=== PATIENT | male | born 1960 | race Caucasian/White ===

== ENCOUNTER 2022-05-08 17:56 | Inpatient (IN) | payer OTHER, SELFPAY ==
[2022-05-08 18:35] VITALS: BP 132/80; PULSE 85; RESP 20; TEMP 36.1; O2SAT 95; BMI 47.0
--- NOTE | 2022-05-08 19:05 | ED.ABDPAIN ---
HPI - Abdominal Pain General Chief Complaint: Abdominal Pain Stated Complaint: PAINFUL ABDOMINAL HERNIA Time Seen by Provider: 05/08/22 18:30 History of Present Illness HPI narrative: This 61-year-old male comes in with abdominal pain due to a umbilical hernia that he cannot reduce. He has had this hernia previously but has been able to reduce the herniation when needed. He has a history of an inguinal hernia that was repaired. This 1 is umbilical. Related Data Home Medications Medication Instructions Recorded Confirmed amlodipine 10 mg tablet mg 05/08/22 bupropion HCl 300 mg 24 hr tablet, mg PO 05/08/22 extended release chlorthalidone 25 mg tablet mg 05/08/22 lisinopril 40 mg tablet mg 05/08/22 rosuvastatin 10 mg tablet mg 05/08/22 spironolactone 25 mg tablet mg 05/08/22 Allergies Allergy/AdvReac Type Severity Reaction Status Date / Time No Known Drug Allergies Allergy Verified 05/08/22 18:34 Review of Systems Status of ROS Reports: 10 or more systems reviewed and unremarkable except as noted in History and below Narrative Constitutional: No fevers, no weight gain or loss. Eyes: No discharge. No vision changes. HENT: No congestion, no sore throat, no ear pain. Cardiovascular: No chest pain, no palpitations. Respiratory: No shortness of breath, no wheezes, no cough. Gastrointestinal: No vomiting, no diarrhea. Abdominal pain at the umbilicus due to herniation. Genitourinary: No dysuria, no hematuria. Musculoskeletal: Normal range of motion. Skin: No rashes, no pruritis. Neurological: No dizziness, weakness, sensory change, speech change. Endo/Heme/Allergies: No bruising or bleeding. No polydipsia. Pysch: no suicidality, no anxiety, no insomnia. All other systems reviewed and are negative. PFSH PFSH Social History Smoking Status: Never smoker How often do you have a drink containing alcohol: never AUDIT-C Alcohol total score: 0 Non-prescribed substance use: denies use service: No Exam Narrative: Exam Narrative: Constitutional: Well-developed, well-nourished, no acute distress. HEENT: Normocephalic, atraumatic. Neck: Normal range of motion. Nontender. Supple. Heart: Intact distal pulses. Lungs: No chest discomfort. No wheezes, rhonchi, or rales. Abdomen: Herniation at the superior portion of the umbilicus that is palpable to about 8 cm in diameter. Back: Normal range of motion. Extremities: Normal range of motion. No injury. Skin: Intact. No rash. Warm. No erythema or pallor. Neurologic: No altered sensation. No weakness. Alert and oriented. Psychiatric: No suicidality. No anxiety or depression. No insomnia. Nursing notes and vitals signs are reviewed. Const: Vital Signs, click to edit/add: Vital Signs - 24 hr 05/08/22 18:35 05/08/22 19:43 Temperature 97.0 F L Pulse Rate [Right Pulse Oximeter] 85 86 Respiratory Rate 20 Blood Pressure [Ri ght Upper Arm] 132/80 138/82 Pulse Oximetry 95 91 Oxygen Delivery Me thod Room Air Room Air Course Vital Signs Vital signs: Initial Vital Signs Temperature 97.0 F L 05/08/22 18:35 Temperature Source Temporal Artery Scan 05/08/22 18:35 Pulse Rate 85 05/08/22 18:35 Respiratory Rate 20 05/08/22 18:35 Blood Pressure 132/80 05/08/22 18:35 Blood Pressure Mean 97 05/08/22 18:35 Blood Pressure Position Sitting 05/08/22 18:35 Pulse Oximetry 95 05/08/22 18:35 Oxygen Delivery Method 05/08/22 18:35 Vital Signs Temperature 97.0 F L 05/08/22 18:35 Pulse Rate 85 05/08/22 18:35 Respiratory Rate 20 05/08/22 18:35 Blood Pressure 132/80 05/08/22 18:35 Pulse Oximetry 95 05/08/22 18:35 Oxygen Delivery Method 05/08/22 18:35 Temperature 97.0 F L 05/08/22 18:35 Pulse Rate 86 05/08/22 19:43 Respiratory Rate 20 05/08/22 18:35 Blood Pressure 138/82 05/08/22 19:43 Pulse Oximetry 91 05/08/22 19:43 Oxygen Delivery Method 05/08/22 19:43 MDM - Abdominal Pain MDM Narrative Medical decision making narrative: This patient comes in with an umbilical hernia that is incarcerated. He does not have any vomiting and does not appear that he has an obstruction of his bowel. I did establish an IV and he received Dilaudid 0.5 mg and Ativan 0.5 mg. I did attempt to reduce the hernia but he became too uncomfortable when becoming more aggressive in trying to push it back into his abdomen. I did contact the surgeon on-call, Dr. Walsh, who requested labs and CT imaging. These results are pending at the end of my shift and care for this patient will be followed through with a contact to Dr. Walsh with results. She will make plans from there in regard to this incarcerated hernia. Lab Data Labs: Lab Results 05/08/22 Range/Units 20:27 WBC 13.10 H (4.50-11.00) K/uL RBC 5.21 (4.30-5.90) m/uL Hgb 15.8 (13.5-17.5) gm/dL Hct 46.3 (37.0-53.0) % MCV 89 (80-100) fL MCH 30 (26-34) pg MCHC 34 (32-36) gm/dL RDW Coeff of Greg 12.7 (11.5-15.5) % Plt Count 269 (140-440) K/uL Neut % (Auto) 82.6 H (42.0-72.0) % Lymph % (Auto) 10.9 L (20-44) % [place] % (Auto) 5.0 (0.0-11.0) % Eos % (Auto) 1.1 (0.0-7.0) % Baso % (Auto) 0.3 (0.0-3.0) % Neut # (Auto) 10.80 H (1.7-7.0) K/uL Lymph # (Auto) 1.40 (0.90-2.90) K/uL [place] # (Auto) 0.70 (0.00-0.90) K/UL Eos # (Auto) 0.10 (0.00-0.50) K/uL Baso # (Auto) 0.00 (0.00-0.30) K/uL Abs Immat Gran (auto) 0.01 (0.00-0.30) K/uL Discharge Plan Discharge Clinical Impression: Incarcerated hernia Prescriptions: No Action chlorthalidone 25 mg tablet spironolactone 25 mg tablet amlodipine 10 mg tablet lisinopril 40 mg tablet rosuvastatin 10 mg tablet bupropion HCl 300 mg tablet extended release 24 hr PO Follow Up/Referrals: Luz Jimenez DO [Primary Care Provider] -
[2022-05-08] MEDS: LORazepam 2 MG/ML inj 0.5 MG IV (19:23)
[2022-05-08] MEDS: HYDROmorphone 0.5 mg/0.5 ml inj IVP (19:24)
[2022-05-08 19:43] VITALS: BP 138/82; PULSE 86; O2SAT 91
--- NOTE | 2022-05-08 20:08 | CRLHL7_ITS ---
For Patients: As a result of the Century Cures Act, medical imaging exams and procedure reports are released immediately into your electronic medical record. You may view this report before your referring provider. If you have questions, please contact your health care provider. INDICATION: . TECHNIQUE: CT abdomen and pelvis acquired with 150 cc Isovue 370 IV contrast. COMPARISON: 12/11/2021. FINDINGS: Lower chest: Unremarkable. Liver: Unremarkable. Normal in size and attenuation. No suspicious masses. Gallbladder and bile ducts: Mildly prominent bile ducts, likely secondary to post cholecystectomy state. Spleen: Unremarkable. Normal in size. No masses. Adrenal glands: Unremarkable. No nodules. Pancreas: Unremarkable. No mass or inflammation. Kidneys: Left renal cyst, unchanged. No stones. No hydronephrosis. GI tract: Multiple fluid-filled dilated loops of small bowel with transition point at the supraumbilical hernia. Status post appendectomy. Lymph nodes: No lymphadenopathy. Vasculature: Unremarkable. Omentum/Peritoneum/Abdominal Wall: Increased size of supraumbilical hernia, now containing small bowel loops. Small amount of free fluid within the supraumbilical hernia. Interval repair of the left ventral wall hernia. Fat containing left inguinal hernia. Pelvis: Mild prostatomegaly. Bones: Unremarkable for age. IMPRESSION: 1. Small bowel obstruction with transition point at the supraumbilical hernia. 2. Increased size of supraumbilical hernia, which now contains small bowel loops and a small amount of free fluid. Please note that all CT scans at this facility use dose modulation, iterative reconstruction, and/or weight-based dosing when appropriate to reduce radiation dose to as low as reasonably achievable. Dictated by Sven Burrows MD @ 05/08/2022 10:29:29 PM (Electronically Signed)
[2022-05-08 20:33] LABS: Basophils Percent Auto 0.3 % (0.0-3.0); Eosinophils Percent Auto 1.1 % (0.0-7.0); Hematocrit 46.3 % (37.0-53.0); Hemoglobin* 15.8 gm/dL (13.5-17.5); Immature Granulocytes Abs Auto 0.01 K/uL (0.00-0.30); Lymphocytes Percent Auto 10.9 % (20-44); Mean Corpuscular HGB Conc 34 gm/dL (32-36); Mean Corpuscular Hemoglobin 30 pg (26-34); Mean Corpuscular Volume 89 fL (80-100); Neutrophils Percent Auto 82.6 % (42.0-72.0); Platelet Count* 269 K/uL (140-440); RDW Coefficient of Variation % 12.7 % (11.5-15.5); Red Blood Count 5.21 m/uL (4.30-5.90)
[2022-05-08 20:34] LABS: Slide Review Reflex No
[2022-05-08 21:29] LABS: Chloride* 98 mmol/L (96-114)
[2022-05-08 21:30] LABS: Sodium* 135 mmol/L (135-149)
[2022-05-08 21:32] LABS: Creatinine* 0.9 mg/dL (0.5-1.5); Est. Creatinine Clearance* 92.96; Estimated Glomerular Filt Rate 98 ml/min
[2022-05-08 21:33] LABS: Blood Urea Nitrogen* 19 mg/dL (7-30); Calcium* 9.8 mg/dL (8.4-10.6); Carbon Dioxide* 26 mmol/L (20-32); Glucose* 162 mg/dL (60-115)
[2022-05-08 22:45] VITALS: BP 101/66; PULSE 85; O2SAT 95
[2022-05-08] MEDS: ONDANSETRON 2 MG/ML inj 4 MG IVP (23:08)
[2022-05-08 23:32] VITALS: BP 145/70; PULSE 104; O2SAT 93
--- NOTE | 2022-05-08 23:42 | PM.GSCN ---
History of Present Illness Consult details Date Seen: 05/08/22 Consult date: 05/08/22 Narrative: Patient is a 61-year-old male, who presented to the emergency department with worsening abdominal pain. He states that around 2:00 this afternoon the hernia around his belly button became more tender. He also reports some swelling around that time. He does usually have a bulge that is able to easily reduce, however this afternoon he was unable to push away the bulge and the pain increased in intensity. His last bowel movement was earlier this morning. Since being in the emergency department his pain has worsened and he is now reporting nausea with emesis. He does have history of a recent incarcerated ventral hernia of the left lower quadrant (December 2021). At that time the hernia was able to be reduced in the emergency department and patient underwent urgent repair as an outpatient with placement of mesh. His umbilical hernia was asymptomatic at that time. His abdominal surgical history is also positive for an exploratory laparotomy with stoma creation and stoma takedown secondary to diverticulitis. He has also had an appendectomy and a cholecystectomy. He is a nonsmoker, no history of diabetes. He does have morbid obesity with a BMI of 47. Review of Systems Status of ROS: Reports: 10 or more systems reviewed and unremarkable except as noted in History and below [facility] Social History Smoking Status: Never smoker How often do you have a drink containing alcohol: never AUDIT-C Alcohol total score: 0 Non-prescribed substance use: denies use service: No Meds Home Medications and Allergies Home Medications Medication Instructions Recorded Confirmed Type amlodipine 10 mg tablet mg 05/08/22 History bupropion HCl 300 mg 24 hr tablet, mg PO 05/08/22 History extended release chlorthalidone 25 mg tablet mg 05/08/22 History lisinopril 40 mg tablet mg 05/08/22 History rosuvastatin 10 mg tablet mg 05/08/22 History spironolactone 25 mg tablet mg 05/08/22 History Allergies Allergy/AdvReac Type Severity Reaction Status Date / Time No Known Drug Allergies Allergy Verified 05/08/22 18:34 Exam Narrative: Exam Narrative: General: Patient is lying on his side in moderate amount of discomfort, nontoxic in appearance. Respiratory: Equal breath rise bilaterally, maintained on room air CV: Tachycardia, regular rhythm and well perfused Abdomen: Obese abdomen, previously well-healed surgical incisions. Supraumbilical bulge that is tender to palpation, no overlying skin changes. Const: Vital Signs, click to edit/add: Vital Signs - 24 hr 05/08/22 18:35 05/08/22 19:43 05/08/22 22:45 Temperature 97.0 F L Pulse Rate [Right Pulse Oximeter] 85 86 85 Respiratory Rate 20 Blood Pressure [Ri ght Upper Arm] 132/80 138/82 101/66 Pulse Oximetry 95 91 95 Oxygen Delivery Me thod Room Air Room Air Room Air 05/08/22 23:32 Temperature Pulse Rate [Right Pulse Oximeter] 104 H Respiratory Rate Blood Pressure [Ri ght Upper Arm] 145/70 H Pulse Oximetry 93 Oxygen Delivery Me thod Room Air Results Labs Labs: Abnormal lab results 05/08/22 05/08/22 Range/Units 20:27 20:27 WBC 13.10 H (4.50-11.00) K/uL Neut % (Auto) 82.6 H (42.0-72.0) % Lymph % (Auto) 10.9 L (20-44) % Neut # (Auto) 10.80 H (1.7-7.0) K/uL Glucose 162 H (60-115) mg/dL Diabetes panel 05/08/22 Range/Units 20:27 Sodium 135 (135-149) mmol/L Potassium 4.0 (3.6-5.1) mmol/L Chloride 98 (96-114) mmol/L Carbon Dioxide 26 (20-32) mmol/L BUN 19 (7-30) mg/dL Creatinine 0.9 (0.5-1.5) mg/dL Glucose 162 H (60-115) mg/dL Calcium 9.8 (8.4-10.6) mg/dL Calcium panel 05/08/22 Range/Units 20:27 Calcium 9.8 (8.4-10.6) mg/dL Pituitary panel 05/08/22 Range/Units 20:27 Sodium 135 (135-149) mmol/L Potassium 4.0 (3.6-5.1) mmol/L Chloride 98 (96-114) mmol/L Carbon Dioxide 26 (20-32) mmol/L BUN 19 (7-30) mg/dL Creatinine 0.9 (0.5-1.5) mg/dL Glucose 162 H (60-115) mg/dL Calcium 9.8 (8.4-10.6) mg/dL Adrenal panel 05/08/22 Range/Units 20:27 Sodium 135 (135-149) mmol/L Potassium 4.0 (3.6-5.1) mmol/L Chloride 98 (96-114) mmol/L Carbon Dioxide 26 (20-32) mmol/L BUN 19 (7-30) mg/dL Creatinine 0.9 (0.5-1.5) mg/dL Glucose 162 H (60-115) mg/dL Calcium 9.8 (8.4-10.6) mg/dL All other labs normal. Imaging Abdomen CT scan report/results: report reviewed and image reviewed Assessment and Plan Assessment and plan (1) Incarcerated hernia: Status: Acute Plan Patient is a 61-year-old male with evidence of a supraumbilical hernia, with incarcerated small bowel. On exam he is in a moderate amount of distress and tachycardic. Tender supraumbilical with some guarding. Labs are significant for leukocytosis of 13,000. CT scan demonstrates an increase in size of his supraumbilical hernia, when compared to previous imaging, with small-bowel obstruction and transition point within the supraumbilical hernia itself. There is also a small amount of free fluid within the hernia sac. An attempt was made by emergency room physician kimberly, prior to my evaluation and unsuccessful. Given the above findings on workup, as well as my clinical exam, I am concerned about small bowel incarceration and possible strangulation. Recommend patient undergo an emergent exploratory laparotomy, with possible small-bowel resection and ventral hernia repair. I would not plan to place mesh in this setting, given the increased risk of infection. Risks and benefits of the procedure were discussed at length with the patient and his . Risks included, but were not limited to: Bleeding, infection, risk of anastomotic leak, risk of damage to surrounding structures and the possible need for additional procedures. I also reviewed with the patient the risk of hernia recurrence, which is higher given his body habitus and the need for a primary repair. All questions and concerns were addressed with patient agreeing to proceed.
[2022-05-08 23:57] LABS: PCR FLU A Negative PCR FLU A (Negative); PCR FLU B Negative PCR FLU B (Negative)
[2022-05-08 23:59] LABS: SARS PCR* Negative SARS-CoV-2 (Negative)
[2022-05-09] VITALS (22 sets, daily range): BP systolic 115–173; BP diastolic 69–106; PULSE 90–115; RESP 16–20; TEMP 36.6–37.3; O2SAT 92–98; BMI 47.0
[2022-05-09] MEDS: PIPERACILLIN/TAZOBACTAM 3.375 GM in 0.9 % SODIUM CHLORIDE Mini-bag 100 ML IVPB (00:14)
--- NOTE | 2022-05-09 00:41 | SUR.OPER ---
Patient was transferred from ER to OR4 by bed. Patient was assisted to the OR table and covered with warm blankets x2.
--- NOTE | 2022-05-09 02:34 | PM.GSPRC ---
Operative Note Date of procedure: 05/09/22 Type of Procedure: 1. Exploratory laparotomy 2. Small bowel resection with anastomosis Procedure Description: After discussing the risks and benefits of the procedure, the patient signed informed consent.? The operative site was marked and the patient was brought to the operating room and placed on the operating table in supine position.? Care was taken to pad the patient's pressure points.?? The patient was then intubated by anesthesia.?? A tap block was performed by Anesthesia. A Akbar catheter was placed sterilely. The operative site was then prepped and draped in the usual sterile fashion.? A time-out was then performed. A supraumbilical midline incision was made with a 10 scalpel. Dissection was carried down carefully through subcutaneous tissue with cautery. A hernia sac was encountered within the subcutaneous tissue. This was very taut and large, with obvious fluid within the hernia sac itself. The incision was carried down inferior to just below the umbilicus. The hernia sac was circumferentially dissected down to fascia. The hernia sac was then sharply entered with the Metzenbaum scissors with a moderate amount of murky serous fluid within the abdomen. The incarcerated bowel had a concerning area of necrosis. There also multiple inter bowel and mesenteric adhesions. The fascial defect was extended superior and inferiorly to allow for inspection of the small bowel and small bowel anastomosis. The small bowel was run from the ligament of Treitz to the ileocecal valve, there were multiple thick adhesions that were apparent. A transition point was identified near the area of necrotic bowel. I performed a lysis of adhesions to the segment of small bowel that was involved with the hernia and required resection. This was performed bluntly with finger fracturing and sharply with Metzenbaum scissors. Care was taken not to injure any of the underlying bowel. There was no evidence of any incidental serosal adhesions. A point proximal and distal to the necrotic segment of bowel was chosen for resection. A small incision was made in the mesentery and each and cut with 100 mm blue MAITE staple load. The mesentery was scored with cautery. The mesentery was then serially divided and ligated with 2 0 Vicryl ties. The specimen was then passed off to the back table. An enterotomy was created on each segment of bowel along the anti mesenteric border, approximately 1 cm away from the staple line. A [id number] functional end-to-end anastomosis was created with 100 mm blue MAITE staple load. As the stapler was removed the anastomosis was inspected, with no evidence of bleeding. The common enterotomy was then closed with 3-0 silk Lembert stitches. A 3-0 silk crotch stitch was applied at the base of the anastomosis. The mesenteric defect was closed with running 3-0 Vicryl suture. The bowel was then placed back into the abdomen. An NG tube was placed by Anesthesia and placement confirmed intraoperatively in the stomach. The hernia sac was excised with cautery off of the fascial edges. This was passed off to the back table for disposal. The midline fascial incision was then closed with two running looped 0 Maxon sutures. The incision was irrigated with warm saline and closed with a skin stapler. ? Sterile dressings were then applied. ? The patient was then woken and transported to the recovery area in stable condition. ? The patient tolerated the procedure well. Findings: Incarcerated small bowel within a large supraumbilical hernia. Area of strangulation, requiring small-bowel resection. Anesthesia: GETA Surgeon: Arlene Walsh MD Estimated blood loss (mL): 20 Condition: stable Disposition: PACU
--- NOTE | 2022-05-09 03:06 | W.PM.NB ---
Nerve Block Nerve Block Time Seen by Provider: 23:55 Date Seen: 05/08/22 Type of block requested by surgeon for post-operative analgesia: TAP Side: bilateral Time out performed: Yes Verification of patient name: Yes Verification of date of : Yes Site marking: site marked Name of person performing procedure: KI Reynoso Continuous monitoring Was continuous monitoring of O2 sat, B/P, telemetry monitor, recorded every 15 minutes?: Yes Procedure Checklist: sterile prep, needles and gloves Ultrasound guided. Images saved: Yes Medications given in 5ml increments after negative aspiration: Marcaine (20 ml/side) %: 0.25 mL: 40 Needle gauge: 20 and Exparel (5 ml/side) mL: 10 Needle gauge: 20 Patient tolerated procedure well: Yes Block Charges Block Charge (with Pro Fee): TAP Bilateral Use of Ultrasound Machine for Block: Yes- US Guidance/pain block
--- NOTE | 2022-05-09 03:08 | W.ANESCHARGE ---
Anesthesia Charges Start Date/Time Anesthesia Start Date: 05/08/22 Anesthesia Start Time: 23:55 Stop Date/Time Anesthesia Stop Date: 05/09/22 Anesthesia Stop Time: 02:51 Summary Emergency: Yes
[2022-05-09] MEDS: LACTATED RINGERS 1000 ML 1,000 ML 125 ML IV ×2 (04:08→08:01)
--- NOTE | 2022-05-09 05:38 | PC.NURSE ---
Pt arrived from PACU approx 0315, awake and orients x3, at bedside. Midline incision with dressing applied, C/D/I and abd binder in place. denies N/V, NG tube in place to LIS. bowel sounds absent
[2022-05-09] MEDS: OXYCODONE 5 MG TABLET PO (07:42)
[2022-05-09] MEDS: ACETAMINOPHEN 325 MG TABLET 650 MG PO (07:42)
[2022-05-09] MEDS: HYDROmorphone 0.5 mg/0.5 ml inj IVP ×2 (08:54→16:44)
--- NOTE | 2022-05-09 09:39 | P.GSPN_ITS ---
Subjective Subjective Date Seen: 05/09/22 Interval history: Patient is doing okay this morning. He has not yet gotten out of bed. He does have incisional pain, but overall abdominal pain is improved compared to yesterday. Not yet passed gas. No concerns. Exam Narrative: Exam Narrative: General: Alert and oriented, no acute distress. Lying comfortably in bed. Respiratory: Nasal cannula in place HEENT: NG tube in place, minimal bile tinged output CV: Mild tachycardia, well perfused Abdomen: Obese abdomen, soft, appropriately tender over incision sites. No gua rding or rebound. Abdominal binder remains in place. Const: Vital Signs, click to edit/add: Vital Signs - 24 hr 05/08/22 18:35 05/08/22 19:43 05/08/22 22:45 Temperature 97.0 F L Pulse Rate Pulse Rate [Pulse Oximeter] Pulse Rate [Right Pulse Oximeter] 85 86 85 Respiratory Rate 20 Blood Pressure Blood Pressure [Ri ght Arm] Blood Pressure [Ri ght Upper Arm] 132/80 138/82 101/66 Pulse Oximetry 95 91 95 Oxygen Delivery Me thod Room Air Room Air Room Air Oxygen Flow Rate 05/08/22 23:32 05/09/22 02:47 05/09/22 02:50 Temperature 98.2 F Pulse Rate 96 99 Pulse Rate [Pulse Oximeter] Pulse Rate [Right Pulse Oximeter] 104 H Respiratory Rate 16 16 Blood Pressure 139/91 H 136/97 H Blood Pressure [Ri ght Arm] Blood Pressure [Ri ght Upper Arm] 145/70 H Pulse Oximetry 93 98 98 Oxygen Delivery Me thod Room Air Nasal Cannula Nasal Cannula Oxygen Flow Rate 6 6 05/09/22 02:55 05/09/22 03:00 05/09/22 03:05 Temperature Pulse Rate 91 90 95 Pulse Rate [Pulse Oximeter] Pulse Rate [Right Pulse Oximeter] Respiratory Rate 16 16 16 Blood Pressure 134/90 H 140/89 H 141/88 H Blood Pressure [Ri ght Arm] Blood Pressure [Ri ght Upper Arm] Pulse Oximetry 95 96 98 Oxygen Delivery Me thod Nasal Cannula Nasal Cannula Nasal Cannula Oxygen Flow Rate 6 6 4 05/09/22 03:10 05/09/22 03:15 05/09/22 03:17 Temperature 98.2 F Pulse Rate 97 90 Pulse Rate [Pulse Oximeter] 94 Pulse Rate [Right Pulse Oximeter] Respiratory Rate 16 16 18 Blood Pressure 128/84 126/83 Blood Pressure [Ri ght Arm] 156/99 H Blood Pressure [Ri ght Upper Arm] Pulse Oximetry 95 97 94 Oxygen Delivery Me thod Nasal Cannula Nasal Cannula Nasal Cannula Oxygen Flow Rate 4 4 4 05/09/22 03:27 05/09/22 03:50 05/09/22 04:06 Temperature 98.4 F 97.9 F Pulse Rate Pulse Rate [Pulse Oximeter] 93 96 Pulse Rate [Right Pulse Oximeter] Respiratory Rate 18 18 20 Blood Pressure Blood Pressure [Ri ght Arm] 163/106 H 173/103 H Blood Pressure [Ri ght Upper Arm] Pulse Oximetry 96 96 96 Oxygen Delivery Me thod Nasal Cannula Nasal Cannula Nasal Cannula Oxygen Flow Rate 4 4 4 05/09/22 04:14 05/09/22 04:20 05/09/22 03:15 Temperature 97.9 F 98.8 F 98.3 F Pulse Rate 94 Pulse Rate [Pulse Oximeter] 102 H 102 H Pulse Rate [Right Pulse Oximeter] Respiratory Rate 18 18 18 Blood Pressure Blood Pressure [Ri ght Arm] 115/86 115/86 156/99 H Blood Pressure [Ri ght Upper Arm] Pulse Oximetry 96 95 Oxygen Delivery Me thod Nasal Cannula Nasal Cannula Nasal Cannula Oxygen Flow Rate 4 4 4 05/09/22 04:30 05/09/22 05:00 05/09/22 06:00 Temperature 98.6 F 98.6 F Pulse Rate Pulse Rate [Pulse Oximeter] 106 H 104 H 111 H Pulse Rate [Right Pulse Oximeter] Respiratory Rate 18 20 20 Blood Pressure Blood Pressure [Ri ght Arm] 120/80 128/88 125/85 Blood Pressure [Ri ght Upper Arm] Pulse Oximetry 95 93 94 Oxygen Delivery Me thod Nasal Cannula Nasal Cannula Nasal Cannula Oxygen Flow Rate 4 4 4 05/09/22 07:00 Temperature 98.6 F Pulse Rate Pulse Rate [Pulse Oximeter] 106 H Pulse Rate [Right Pulse Oximeter] Respiratory Rate 20 Blood Pressure Blood Pressure [Ri ght Arm] 152/97 H Blood Pressure [Ri ght Upper Arm] Pulse Oximetry 92 Oxygen Delivery Me thod Nasal Cannula Oxygen Flow Rate 4 Labs/Imaging Labs Labs: Leukocytosis (13), hyperglycemia (162). Progress Note: A&P Assessment and plan (1) Incarcerated hernia: Status: Acute Assessment and Plan: Patient is postop day 0 exploratory laparotomy and small-bowel resection. Doing well in the immediate postop phase. Has had some mild tachycardia overnight, will continue to trend at this time, suspect could be secondary to pain. Afebrile and abdomen is benign this morning. NG tube remains in place, minimal output since getting on the floor. He continues to have the Akbar catheter in place and has not yet gotten out of the bed. -encourage ambulation -NG tube low intermittent suction -NPO, okay for sips and ice chips -remove Akbar catheter this morning -Dilaudid and oxycodone for pain, will add Toradol -SCDs, holding Lovenox for DVT prophylaxis in the immediate postop phase -will hold [employer] meds for now
[2022-05-09] MEDS: KETOROLAC 15 MG/ML inj IVP ×2 (12:47→19:06)
--- NOTE | 2022-05-09 14:26 | PC.NURSE ---
NG to LIS with 200 cc out. Dressing CDI under abdominal binder. Rounds by Dr. Walsh. Pt's oakley discontinued at 1345 pm, pt walked in hallway once this afternoon with SBA. He has been up to chair during the day. Oxygen tapered to 3L/NC Please see eMar for medications provided on day shift. Pt is deaf in his left ear, cochlear implant, please address pt from the right side.
--- NOTE | 2022-05-09 22:42 | PC.NURSE ---
Shift Summary: Patient is up in the chair this evening. Rating pain at a 6-8/10 in his abdomen. Dressing appears clean, dry and intact. Abdomen is tender with no bowel sounds present. Abdominal binder in place. Patient encouraged to walk in the [place] - went for walk in the [place] x2 this shift. Dilaudid and toradol given PRN for pain management. NG remains to LIS - 150mL out for this shift.
[2022-05-10] VITALS (7 sets, daily range): BP systolic 106–127; BP diastolic 60–94; PULSE 89–102; RESP 20–24; TEMP 36.7–37.2; O2SAT 90–96
[2022-05-10] MEDS: LACTATED RINGERS 1000 ML 1,000 ML 125 ML IV ×4 (00:19→23:48)
[2022-05-10] MEDS: HYDROmorphone 0.5 mg/0.5 ml inj IVP ×2 (01:33→09:13)
--- NOTE | 2022-05-10 06:48 | PC.NURSE ---
END OF SHIFT NOTE: PT CALM AND COOPERATIVE. PT AMBULATES WITH SBA. PT DENIES CP, SOB, N/V. PT RATES ABDOMINAL PAIN 8/10 WITH RELIEF FROM PRN DILAUDID. PT ALSO RATED HEADACHE 5/10 THAT DISSIPATED AFTER SAME DILAUDID ADMINISTRATION. VSS ON 3.5L NC NOC. TACHYCARDIC @102. LR RUNNING @125ML/HR. NG PLACED IN LEFT NARE @65; DRAINING BROWN OUTPUT. UNEVENTFUL NIGHT.
[2022-05-10 06:58] LABS: Basophils Percent Auto 0.2 % (0.0-3.0); Eosinophils Percent Auto 0.5 % (0.0-7.0); Hematocrit 40.5 % (37.0-53.0); Hemoglobin* 13.4 gm/dL (13.5-17.5); Immature Granulocytes Abs Auto 0.03 K/uL (0.00-0.30); Lymphocytes Percent Auto 11.9 % (20-44); Mean Corpuscular HGB Conc 33 gm/dL (32-36); Mean Corpuscular Hemoglobin 31 pg (26-34); Mean Corpuscular Volume 92 fL (80-100); Monocytes Percent Auto 10.3 % (0.0-11.0); Neutrophils Percent Auto 76.9 % (42.0-72.0); Platelet Count* 248 K/uL (140-440); RDW Coefficient of Variation % 13.2 % (11.5-15.5)
[2022-05-10 07:11] LABS: Slide Review Reflex No
[2022-05-10 07:19] LABS: Chloride* 97 mmol/L (96-114); Sodium* 134 mmol/L (135-149)
[2022-05-10 07:22] LABS: Blood Urea Nitrogen* 25 mg/dL (7-30); Calcium* 8.2 mg/dL (8.4-10.6); Carbon Dioxide* 30 mmol/L (20-32); Creatinine* 0.9 mg/dL (0.5-1.5); Est. Creatinine Clearance* 92.96; Estimated Glomerular Filt Rate 98 ml/min; Glucose* 135 mg/dL (60-115)
[2022-05-10] MEDS: KETOROLAC 15 MG/ML inj IVP (07:45)
[2022-05-10] MEDS: ONDANSETRON 2 MG/ML inj IVP (07:45)
[2022-05-10] MEDS: 0.9 % SODIUM CHLORIDE 1000 ml 1,000 ML IV (09:11)
[2022-05-10] MEDS: buPROPion XL 150 MG TABLET 300 MG PO (09:12)
[2022-05-10] MEDS: SPIRONOLACTONE 25 MG TABLET 12.5 MG PO (09:12)
[2022-05-10] MEDS: lisinopriL 20 MG TABLET 40 MG PO (09:13)
[2022-05-10] MEDS: CHLORTHALIDONE 25 MG TABLET PO (09:13)
[2022-05-10] MEDS: AMLODIPINE 10 MG TABLET PO (09:13)
--- NOTE | 2022-05-10 09:48 | P.GSPN_ITS ---
Subjective Subjective Date Seen: 05/10/22 Interval history: Patient is doing well this morning. He was able to walk the halls twice yesterday, his goal is to walk 4 times today. No appetite and not yet passing gas, although he does feel ?things rumbling?. He does admit to some nausea this morning, helped with Zofran. His NG tube continues in place. His abdominal pain is well controlled with IV pain medicine. Exam Narrative: Exam Narrative: General: Alert and oriented, no acute distress. Lying in bed comfortably. Respiratory: Equal breath rise bilaterally, maintained on room air CV: Mild tachycardia, well perfused Abdomen: Obese abdomen, abdominal binder and dressings removed. Midline incision with [place] in place clean/dry/intact with no concern for infection. Abdomen is nondistended and nontender to palpation. Const: Vital Signs, click to edit/add: Vital Signs - 24 hr 05/09/22 13:00 05/09/22 15:00 05/09/22 15:00 Temperature 99.2 F 97.9 F Pulse Rate [Pulse Oximeter] 109 H 97 101 H Respiratory Rate 20 20 20 Blood Pressure [Ri ght Arm] 134/79 137/69 Pulse Oximetry 95 94 Oxygen Delivery Me thod Nasal Cannula Oxygen Flow Rate 3 05/09/22 19:00 05/10/22 01:30 05/10/22 01:30 Temperature 98.9 F 98.4 F Pulse Rate [Pulse Oximeter] 97 102 H 102 H Respiratory Rate 20 20 20 Blood Pressure [Ri ght Arm] 144/81 H 122/94 H Pulse Oximetry 93 90 Oxygen Delivery Me thod Room Air Nasal Cannula Oxygen Flow Rate 2.5 05/10/22 03:50 Temperature 98.1 F Pulse Rate [Pulse Oximeter] 102 H Respiratory Rate 20 Blood Pressure [Ri ght Arm] 127/72 Pulse Oximetry 95 Oxygen Delivery Me thod Nasal Cannula Oxygen Flow Rate 3.5 Labs/Imaging Labs Labs: Persistent leukocytosis 13, hemoglobin has trended down (15.8--13.4) Progress Note: A&P Assessment and plan (1) Incarcerated hernia: Status: Acute Assessment and Plan: Patient is postop day 1 exploratory laparotomy and small-bowel resection. Persistent tachycardia (upper 90/low 100s), could be secondary to patient being fluid down, low concern for infection with patient being afebrile. Leukocytosis is stable but will continue to trend. Will give a bolus of normal saline this morning and evaluate response. Pain does appear well controlled at this time with IV pain medicines. Hemoglobin did trend down (15.8--13.4), could be surgical sales representative of intraoperative blood loss, low concern for ongoing bleeding at this time with patient having a benign abdomen and stable pressures however will continue to hold his subcutaneous DVT prophylaxis until hemoglobin stabilizes. Will continue with NG tube in place to low intermittent suction given patient's intermittent nausea, anticipate removal once patient starts passing gas. -encourage ambulation -NG tube low intermittent suction -NPO, okay for sips and ice chips -Dilaudid and oxycodone for pain, will add Toradol -SCDs, holding Lovenox for DVT prophylaxis until stabilized hemoglobin -bolus of normal saline this morning, close monitoring urinary output -restarted home medications, okay to clamp NG tube p.r.n.
[2022-05-10] MEDS: OXYCODONE 5 MG TABLET PO ×2 (14:56→23:26)
--- NOTE | 2022-05-10 15:38 | PC.NURSE ---
Please see Emar for meds given to control pain and scheduled medications. Pt eval by Dr. Walsh early am, treated pt with 8mg Zofran and 15 mg toradol for c/o nausea and pain 8-9 out of 10. RN flushed NG with 30cc of water and only 30 cc of gastric drainage recovered by early afternoon. Drsg changed per primary RN to vertical stapled incision. Abdominal binder off. Pt has walked 3 times in hallway and passed flatus twice. Dr. Walsh removed NG. Advanced to CL diet. Adequate I & O. No c/o increased nausea reported by pt. Pain managed with oral oxycodone at this time. Report to Carito Sheehan RN.
[2022-05-10] MEDS: ROSUVASTATIN CALCIUM 10 MG TABLET PO (20:05)
--- NOTE | 2022-05-10 21:40 | PC.NURSE ---
Shift Note [id number]: Pt friendly and cooperative. Diligent with ambulation and took long walk throughout unit with his this evening. Pt did complete 4 walks throughout the day. BP's slightly soft, pt asymptomatic with 103 and 113 systolic. HR= 80-90's. Afebrile. LS COA. Rates pain 4/10, did not require any pain medication this shift. Dressings to medial abdomen C,D,&I. 3.5L/O2 via NC at HS to maintain Spo2 90-92%. Pt reports flatus but no BM. Positive bowel tones throughout. No nausea reported.
[2022-05-11 03:50] VITALS: BP 127/65; PULSE 83; RESP 22; TEMP 36.9; O2SAT 95
[2022-05-11] MEDS: ACETAMINOPHEN 325 MG TABLET 650 MG PO ×4 (06:49→23:58)
[2022-05-11 07:00] VITALS: BP 124/60; PULSE 84; RESP 20; TEMP 36.8; O2SAT 94
--- NOTE | 2022-05-11 07:48 | PC.NURSE ---
END OF SHIFT NOTE: PT PLEASANT AND COOPERATIVE WITH CARES. AMBULATES INDEPENDENTLY. PASSING FLATUS; NO BM REPORTED. LEFT HAND IV INFILTRATED, HAND PUFFY; IV DC'D. NEW IV START TO RIGHT HAND. SUPPLEMENTAL O2 USED AT HS TO MAINTAIN SATS >90%. ADEQUATE ORAL INTAKE AND VOIDING APPROPRIATELY.
[2022-05-11] MEDS: AMLODIPINE 10 MG TABLET PO (08:34)
[2022-05-11] MEDS: buPROPion XL 150 MG TABLET 300 MG PO (08:34)
[2022-05-11] MEDS: CHLORTHALIDONE 25 MG TABLET PO (08:34)
[2022-05-11] MEDS: lisinopriL 20 MG TABLET 40 MG PO (08:34)
[2022-05-11] MEDS: SPIRONOLACTONE 25 MG TABLET 12.5 MG PO (08:35)
[2022-05-11] MEDS: LACTATED RINGERS 1000 ML 1,000 ML 125 ML IV (08:36)
--- NOTE | 2022-05-11 09:28 | PM.GSPN ---
Subjective Subjective Date Seen: 05/11/22 Interval history: Patient is doing well this morning. Has been ambulating in his room and in the halls independently. Continues to pass gas, no bowel movement yet. He does report tolerating clear liquids yesterday and is feeling hungry this morning. Denies any nausea. Pain is well controlled without the need for narcotic pain medicine. No concerns. Exam Narrative: Exam Narrative: General: Alert and oriented, no acute distress Abdomen: Midline incision with mariposa in place clean/dry/intact with no concern for infection. Abdomen is soft, nontender and nondistended. Const: Vital Signs, click to edit/add: Vital Signs - 24 hr 05/10/22 11:00 05/10/22 15:00 05/10/22 15:00 Temperature 98.9 F 98.4 F Pulse Rate [Pulse Oximeter] 95 94 90 Respiratory Rate 20 20 20 Blood Pressure [Ri ght Arm] 110/68 106/70 Pulse Oximetry 92 93 Oxygen Delivery Me thod Nasal Cannula Room Air Oxygen Flow Rate 05/10/22 19:00 05/10/22 23:10 05/10/22 23:10 Temperature 98.4 F 98.4 F Pulse Rate [Pulse Oximeter] 89 93 93 Respiratory Rate 20 24 24 Blood Pressure [Ri ght Arm] 113/60 124/64 Pulse Oximetry 92 93 Oxygen Delivery Me thod Nasal Cannula Nasal Cannula Oxygen Flow Rate 3.5 3.5 05/11/22 03:50 05/11/22 07:00 05/11/22 07:00 Temperature 98.4 F 98.2 F Pulse Rate [Pulse Oximeter] 83 84 84 Respiratory Rate 22 20 20 Blood Pressure [Ri ght Arm] 127/65 124/60 Pulse Oximetry 95 94 Oxygen Delivery Me thod Nasal Cannula Room Air Oxygen Flow Rate 3.5 Labs/Imaging Labs Labs: CBC pending this morning Progress Note: A&P Assessment and plan (1) Incarcerated hernia: Status: Acute Assessment and Plan: Patient is postop day 2 exploratory laparotomy and small-bowel resection. Tachycardia improved with fluid bolus yesterday, heart rate remains in the 80s and pressure is adequate. Hemoglobin pending this morning, if stable okay to start Lovenox for DVT prophylaxis. He has started to pass gas, no bowel movement yet. NG tube was removed yesterday. No acute concerns. -clear liquids, will await advancement of diet until patient has a bowel movement -Tylenol, Toradol p.r.n.. Patient trying to avoid narcotic pain medicine -senna stool softeners, Dulcolax suppository p.r.n. -SCDs, holding Lovenox for DVT prophylaxis until stabilized hemoglobin
[2022-05-11 09:37] LABS: Basophils Percent Auto 0.4 % (0.0-3.0); Eosinophils Percent Auto 2.9 % (0.0-7.0); Hematocrit 37.5 % (37.0-53.0); Hemoglobin* 12.5 gm/dL (13.5-17.5); Immature Granulocytes Abs Auto 0.02 K/uL (0.00-0.30); Lymphocytes Percent Auto 16.9 % (20-44); Mean Corpuscular HGB Conc 33 gm/dL (32-36); Mean Corpuscular Hemoglobin 31 pg (26-34); Mean Corpuscular Volume 92 fL (80-100); Monocytes Percent Auto 8.6 % (0.0-11.0); Platelet Count* 218 K/uL (140-440); RDW Coefficient of Variation % 12.8 % (11.5-15.5); Red Blood Count 4.07 m/uL (4.30-5.90); White Blood Count* 11.05 K/uL (4.50-11.00)
[2022-05-11 09:41] LABS: Slide Review Reflex No
[2022-05-11] MEDS: DOCUSATE SODIUM 100 MG CAPSULE PO ×2 (11:15→20:16)
--- NOTE | 2022-05-11 14:14 | PC.NURSE ---
End of Shift Note: Patient has been up and ambulated in hallway several times today. Is tolerating a clear liquid diet. Has not required anything for pain. IV has been saline locked. Will continue to monitor.
[2022-05-11 16:08] VITALS: BP 126/74; PULSE 88; RESP 16; TEMP 36.8; O2SAT 92
[2022-05-11 19:00] VITALS: BP 116/69; PULSE 88; RESP 16; TEMP 36.6; O2SAT 96
[2022-05-11] MEDS: ENOXAPARIN 40 MG/0.4 ML INJ SUBCUT (20:09)
[2022-05-11] MEDS: ROSUVASTATIN CALCIUM 10 MG TABLET PO (20:15)
[2022-05-11 23:00] VITALS: BP 119/68; PULSE 66; RESP 16; TEMP 36.9; O2SAT 97
[2022-05-12 03:00] VITALS: BP 140/71; PULSE 86; RESP 18; TEMP 36.8; O2SAT 90
[2022-05-12] MEDS: ACETAMINOPHEN 325 MG TABLET 650 MG PO ×2 (04:45→08:50)
--- NOTE | 2022-05-12 05:40 | PC.NURSE ---
shift note -: Pt pleasant and cooperative, A&O. Afebrile, oxygen saturations 90% and up on RA. PRN Tylenol given for pain with pt reporting good relief and denies needing any further pain medication. ABD pad applied over top of surgical incision per pt request to prevent gown from rubbing surgical site, pt reported relief. Pt denies N/V, CP, and SOB. Pt up independent and tolerating well, took several walks in the hallway. Reports passing flatus but no BM this shift, tolerating clears well.
[2022-05-12 07:00] VITALS: BP 128/58; PULSE 86; RESP 20; TEMP 36.7; O2SAT 96
[2022-05-12] MEDS: AMLODIPINE 10 MG TABLET PO (08:50)
[2022-05-12] MEDS: SPIRONOLACTONE 25 MG TABLET 12.5 MG PO (08:51)
[2022-05-12] MEDS: buPROPion XL 150 MG TABLET 300 MG PO (08:51)
[2022-05-12] MEDS: DOCUSATE SODIUM 100 MG CAPSULE PO (08:51)
[2022-05-12] MEDS: lisinopriL 20 MG TABLET 40 MG PO (08:51)
[2022-05-12] MEDS: CHLORTHALIDONE 25 MG TABLET PO (08:51)
--- NOTE | 2022-05-12 10:40 | P.GSPN_ITS ---
Subjective Subjective Date Seen: 05/12/22 Interval history: Patient is doing well this morning. He has been ambulating the halls independently without difficulty. Pain is controlled with just Tylenol. He did have a bowel movement this morning. He has been tolerating clear liquids and is feeling hungry. Exam Narrative: Exam Narrative: General: Alert and oriented, no acute distress Abdomen: Soft, nontender and nondistended. [place] in place with incision clean/dry/intact, no concern for infection. Const: Vital Signs, click to edit/add: Vital Signs - 24 hr 05/11/22 16:08 05/11/22 19:00 05/11/22 23:00 Temperature 98.3 F 98 F Pulse Rate [Pulse Oximeter] 88 88 66 Respiratory Rate 16 16 16 Blood Pressure [Ri ght Arm] 126/74 116/69 Pulse Oximetry 92 96 Oxygen Delivery Me thod Room Air Room Air 05/11/22 23:00 05/12/22 03:00 05/12/22 07:00 Temperature 98.4 F 98.2 F 98.1 F Pulse Rate [Pulse Oximeter] 66 86 86 Respiratory Rate 16 18 20 Blood Pressure [Ri ght Arm] 119/68 140/71 H 128/58 L Pulse Oximetry 97 90 96 Oxygen Delivery Me thod Room Air Room Air Room Air 05/12/22 07:00 Temperature Pulse Rate [Pulse Oximeter] 86 Respiratory Rate 20 Blood Pressure [Ri ght Arm] Pulse Oximetry Oxygen Delivery Me thod Progress Note: A&P Assessment and plan (1) Incarcerated hernia: Status: Acute Assessment and Plan: Patient is postop day 3 exploratory laparotomy and small-bowel resection. Patient is doing well postoperatively with now return of bowel function. Will advance diet as tolerated and anticipate discharge later today versus tomorrow morning. -advance diet as tolerated -Tylenol, Toradol p.r.n.. Patient trying to avoid narcotic pain medicine -senna stool softeners, Dulcolax suppository p.r.n. -SCDs, Lovenox for DVT prophylaxis
[2022-05-12 11:00] VITALS: BP 135/77; PULSE 102; RESP 20; TEMP 36.7; O2SAT 96
--- NOTE | 2022-05-22 14:15 | P.DS_ITS ---
DS: Providers Provider Date Seen: 05/12/22 Date of admission: 05/09/22 03:25 Primary care physician: Luz Jimenez DO Admitting Clinician: Arlene Walsh MD Attending Physician on discharge: Arlene Walsh MD DS: Summary Hospital Course Hospital Course: Patient presented to the emergency department with an incarcerated umbilical hernia. He was taken to the operating room with evidence of bowel necrosis, requiring resection. A primary anastomosis was performed, as well as primary repair of his ventral hernia. Postoperatively the patient did well. His NG tube was removed on postop day 2. He demonstrated return of bowel function and was tolerating regular diet at the time of his discharge. He was ambulating independently, voiding without difficulty and pain was well controlled with oral medications. Time Spent with Patient Time attestation: Total time spent providing and/or coordinating discharge services: Exam Narrative: Exam Narrative: Please see progress report from same date Discharge Plan Discharge Disposition: Home, Self-Care Date of Admission: 05/09/22 03:25 Primary Care Provider: Luz Jimenez Condition: Improved Anticipated Discharge Date/Time: 05/12/22 10:35 Discharge Medications: New senna 8.6 mg capsule 8.6 mg PO BID PRN (Reason: constipation) Qty: 90 10RF Continued chlorthalidone 25 mg tablet 25 mg PO DAILY spironolactone 25 mg tablet 12.5 mg PO DAILY amlodipine 10 mg tablet 10 mg PO DAILY lisinopril 40 mg tablet 40 mg PO DAILY rosuvastatin 10 mg tablet 10 mg PO HS bupropion HCl 300 mg tablet extended release 24 hr 300 mg PO DAILY acetaminophen 500 mg tablet 500 - 1,000 mg PO Q6H PRN cholecalciferol (vitamin D3) [Vitamin D3] 25 mcg (1,000 unit) tablet 25 mcg PO DAILY omega-3 fatty acids-fish oil [Fish Oil] 360-1,200 mg capsule 1 cap PO DAILY multivitamin [Multiple Vitamins] Tablet 1 tab PO DAILY sennosides [Chely-beatriz] 8.6 mg tablet 17.2 - 25.8 mg PO DAILY Discharge Orders: Discharge Order (Routine); Ordered 05/12/22 Ordered By: Arlene Walsh Patient Education: Laxative, Stimulant (By mouth), Surgical Site Infections (DC), Laparoscopic Bowel Resection (DC) Additional Instructions: Okay to shower, no soaking in a bath or swimming for 2 weeks. We will schedule a nursing appointment to have your mariposa removed on 05/19/22 Activity Level: Activity as Tolerated Activity Detail: Activity as tolerated. Avoid strenuous activity. No lifting greater than 20 lb for 6 weeks. Please wear abdominal binder as needed for comfort. Discharge Diet: Regular Follow Up Appointments: Arlene Walsh MD [Staff Physician] - 05/23/22 1:00 pm ( A nursing appointment is on 05/19/2022@ 1:00PM for staple removal. Follow up with is on 05/23 ) Luz Jimenez DO [Primary Care Provider] - (follow up as needed) Forms: [employer] Info Instructions
== END 2022-05-12 14:30 | disposition home or self-care (01) | DRG 329 ==
LOC: ED 23:06 → SS 23:09 → MEDSURG 05-09 03:59
PROVIDERS: Internal Medicine; Admitting Provider Surgery; Emergency Provider Emergency Medicine Emergency Medical Services; PCP Family Medicine; Visit Provider Surgery
PROC: (CPT 49000; principal; 2022-05-08 23:45)
DX: K42.0 Umbilical hernia with obstruction, without gangrene (principal); K55.061 Focal (segmental) acute infarction of intestine, part unspecified; Z68.42 Body mass index [BMI] 45.0-49.9, adult; E66.01 Morbid (severe) obesity due to excess calories; R00.0 Tachycardia, unspecified; D72.829 Elevated white blood cell count, unspecified; R73.9 Hyperglycemia, unspecified
CPT/HCPCS: 00840; 36415; 64488; 74177; 76942; 80048; 85025; 87631; 88307; 99140; 99283; 99285; A4467; A9270; C9290; J0330; J1100; J1170; J1650; J1885; J2060; J2370; J2405; J2543; J2704; J3010; J3475; J3490; J7030; J7120; Q9967

== ENCOUNTER 2024-09-26 00:14 | Outpatient (CLI) | payer BC, SELFPAY | END 2024-09-26 00:15 | disposition home or self-care (01) | LOC: AMB 09-30 16:04 | PROVIDERS: PCP Family Medicine; Visit Provider Family Medicine | DX: K56.600 Partial intestinal obstruction, unspecified as to cause (principal) | CPT/HCPCS: A0425; A0427 ==

== ENCOUNTER 2024-09-26 01:05 | Inpatient (IN) | payer BC, SELFPAY ==
[2024-09-26] VITALS (43 sets, daily range): BP systolic 97–139; BP diastolic 55–88; PULSE 89–114; RESP 12–24; TEMP 36.3–37.5; O2SAT 76–95; BMI 54.4
--- NOTE | 2024-09-26 01:24 | ED.ABDPAIN ---
HPI - Abdominal Pain General Chief Complaint: Abdominal Pain <Ervin Osborne MD - Last Filed: 09/26/24 03:31> Stated Complaint: Possible hernia <Ervin Osborne MD - Last Filed: 09/26/24 03:31> Time Seen by Provider: 09/26/24 01:40 <Ervin Osborne MD - Last Filed: 09/26/24 03:31> History of Present Illness HPI narrative: Patient is a 63-year-old gentleman who comes in with severe periumbilical abdominal pain that started approximately 12 hours ago. He has had no fevers no chills no night sweats. He stopped passing gas several hours ago. He has had nausea and vomiting which has been nonbloody non bilious. He has had inguinal hernia repair as well as umbilical hernia repair in the past. Patient has also had partial colonic resection secondary to diverticulitis. Patient does not take any blood thinners. He has had no chest pain no shortness of breath. Patient has had similar presentations which have turned out to be incarcerated bowel. <Ervin Osborne MD - Last Filed: 09/26/24 03:31> Related Data Home Medications: Home Medications ?Medication ?Instructions ?Recorded ?Confirmed amlodipine 10 mg tablet 10 mg PO DAILY 05/08/22 05/09/22 bupropion HCl 300 mg 24 hr tablet, 300 mg PO DAILY 05/08/22 05/09/22 extended release chlorthalidone 25 mg tablet 25 mg PO DAILY 05/08/22 05/09/22 lisinopril 40 mg tablet 40 mg PO DAILY 05/08/22 05/09/22 rosuvastatin 10 mg tablet 10 mg PO HS 05/08/22 05/09/22 spironolactone 25 mg tablet 12.5 mg PO DAILY 05/08/22 05/09/22 acetaminophen 500 mg tablet 500 - 1,000 mg PO Q6H PRN 05/09/22 05/09/22 cholecalciferol (vitamin D3) 25 25 mcg PO DAILY 05/09/22 05/09/22 mcg (1,000 unit) tablet (Vitamin D3) multivitamin (Multiple Vitamins 1 tab PO DAILY 05/09/22 05/09/22 tablet) omega-3 fatty acids-fish oil 360 1 cap PO DAILY 05/09/22 05/09/22 mg-1,200 mg capsule (Fish Oil) sennosides 8.6 mg tablet (Chely-beatriz) 17.2 - 25.8 mg PO DAILY 05/09/22 05/09/22 Previous Rx's ?Medication ?Instructions ?Recorded sennosides 8.6 mg capsule (senna) 8.6 mg PO BID PRN constipation #90 05/12/22 caps <Ervin Osborne MD - Last Filed: 09/26/24 03:31> Allergies/Adverse Reactions: Allergies Allergy/AdvReac Type Severity Reaction Status Date / Time No Known Drug Allergies Allergy Verified 05/08/22 18:34 <Ervin Osborne MD - Last Filed: 09/26/24 03:31> Review of Systems Status of ROS Reports: 10 or more systems reviewed and unremarkable except as noted in History and below <Ervin Osborne MD - Last Filed: 09/26/24 03:31> [facility] Medical History: Medical History (Updated 09/26/24 @ 10:20 by Orvlile Peña MD) History of open sigmoidectomy ?Z98.890 - Other specified postprocedural states (ICD-10) ?Z90.49 - Acquired absence of other specified parts of digestive tract (ICD-10) <Ervin Osborne MD - Last Filed: 09/26/24 03:31> Surgical History: Surgical History (Updated 09/26/24 @ 10:19 by Orville Peña MD) S/P exploratory laparotomy ?Z98.890 - Other specified postprocedural states (ICD-10) S/P repair of ventral hernia ?Z98.890 - Other specified postprocedural states (ICD-10) ?Z87.19 - Personal history of other diseases of the digestive system (ICD-10) History of cholecystectomy ?Z90.49 - Acquired absence of other specified parts of digestive tract (ICD-10) History of creation of ostomy ?Z93.9 - Artificial opening status, unspecified (ICD-10) <Ervin Osborne MD - Last Filed: 09/26/24 03:31> Social History: Social History Smoking Status: Never smoker How often do you have a drink containing alcohol: never AUDIT-C Alcohol total score: 0 Non-prescribed substance use: denies use service: No <Ervin Osborne MD - Last Filed: 09/26/24 03:31> Exam Narrative: Exam Narrative: EXAM GENERAL: Patient appears uncomfortable.. Obese. EYES: No scleral icterus. LYMPH: No supraclavicular or cervical lymphadenopathy. SKIN: Visible skin seen during exam normal or with benign process only. EXT: No dependent lower extremity pedal edema. HEART: Regular rate and rhythm with no murmurs, rubs, or gallops. LUNGS: Clear to auscultation bilaterally with no crackles or wheezes. ABD: Distended with area of firmness palpated in the periumbilical region as well as previous hernia incisions being noted. PSYCH: Good eye contact, speech is not pressured. <Ervin Osborne MD - Last Filed: 09/26/24 03:31> Const: Vital Signs, click to edit/add: Vital Signs - 24 hr 09/26/24 01:17 09/26/24 03:55 09/26/24 03:57 Temperature 98.7 F Pulse Rate Pulse Rate [Pulse Oximeter] 94 98 Respiratory Rate 16 16 Blood Pressure [Ri ght Upper Arm] 132/88 Pulse Oximetry 93 86 L 76 L Oxygen Delivery Me thod Room Air Room Air Room Air Oxygen Flow Rate 09/26/24 03:58 09/26/24 04:21 09/26/24 04:27 Temperature 97.3 F L Pulse Rate Pulse Rate [Pulse Oximeter] 98 Respiratory Rate 16 Blood Pressure [Ri ght Upper Arm] 121/72 Pulse Oximetry 90 90 Oxygen Delivery Me thod Nasal Cannula Nasal Cannula Oxygen Flow Rate 3 3 09/26/24 05:00 09/26/24 06:42 09/26/24 06:48 Temperature Pulse Rate Pulse Rate [Pulse Oximeter] 89 Respiratory Rate 16 Blood Pressure [Ri ght Upper Arm] 98/58 L 104/59 L Pulse Oximetry 93 93 Oxygen Delivery Me thod OxyMask Room Air Oxygen Flow Rate 5 09/26/24 06:49 09/26/24 08:30 Temperature 97.6 F Pulse Rate 91 Pulse Rate [Pulse Oximeter] 98 Respiratory Rate 16 22 Blood Pressure [Ri ght Upper Arm] Pulse Oximetry 94 91 Oxygen Delivery Me thod OxyMask OxyMask Oxygen Flow Rate 5 6 <Ervin Osborne MD - Last Filed: 09/26/24 03:31> Vital Signs, click to edit/add: Vital Signs - 24 hr 09/26/24 01:17 09/26/24 03:55 09/26/24 03:57 Temperature 98.7 F Pulse Rate Pulse Rate [Pulse Oximeter] 94 98 Respiratory Rate 16 16 Blood Pressure [Ri ght Upper Arm] 132/88 Pulse Oximetry 93 86 L 76 L Oxygen Delivery Me thod Room Air Room Air Room Air Oxygen Flow Rate 09/26/24 03:58 09/26/24 04:21 09/26/24 04:27 Temperature 97.3 F L Pulse Rate Pulse Rate [Pulse Oximeter] 98 Respiratory Rate 16 Blood Pressure [Ri ght Upper Arm] 121/72 Pulse Oximetry 90 90 Oxygen Delivery Me thod Nasal Cannula Nasal Cannula Oxygen Flow Rate 3 3 09/26/24 05:00 09/26/24 06:42 09/26/24 06:48 Temperature Pulse Rate Pulse Rate [Pulse Oximeter] 89 Respiratory Rate 16 Blood Pressure [Ri ght Upper Arm] 98/58 L 104/59 L Pulse Oximetry 93 93 Oxygen Delivery Me thod OxyMask Room Air Oxygen Flow Rate 5 09/26/24 06:49 09/26/24 08:30 Temperature 97.6 F Pulse Rate 91 Pulse Rate [Pulse Oximeter] 98 Respiratory Rate 16 22 Blood Pressure [Ri ght Upper Arm] Pulse Oximetry 94 91 Oxygen Delivery Me thod OxyMask OxyMask Oxygen Flow Rate 5 6 <Luz Maria Ruano MD - Last Filed: 09/26/24 08:24> Vital Signs, click to edit/add: Vital Signs - 24 hr 09/26/24 01:17 09/26/24 03:55 09/26/24 03:57 Temperature 98.7 F Pulse Rate Pulse Rate [Pulse Oximeter] 94 98 Respiratory Rate 16 16 Blood Pressure [Ri ght Upper Arm] 132/88 Pulse Oximetry 93 86 L 76 L Oxygen Delivery Me thod Room Air Room Air Room Air Oxygen Flow Rate 09/26/24 03:58 09/26/24 04:21 09/26/24 04:27 Temperature 97.3 F L Pulse Rate Pulse Rate [Pulse Oximeter] 98 Respiratory Rate 16 Blood Pressure [Ri ght Upper Arm] 121/72 Pulse Oximetry 90 90 Oxygen Delivery Me thod Nasal Cannula Nasal Cannula Oxygen Flow Rate 3 3 09/26/24 05:00 09/26/24 06:42 09/26/24 06:48 Temperature Pulse Rate Pulse Rate [Pulse Oximeter] 89 Respiratory Rate 16 Blood Pressure [Ri ght Upper Arm] 98/58 L 104/59 L Pulse Oximetry 93 93 Oxygen Delivery Me thod OxyMask Room Air Oxygen Flow Rate 5 09/26/24 06:49 09/26/24 08:30 Temperature 97.6 F Pulse Rate 91 Pulse Rate [Pulse Oximeter] 98 Respiratory Rate 16 22 Blood Pressure [Ri ght Upper Arm] Pulse Oximetry 94 91 Oxygen Delivery Me thod OxyMask OxyMask Oxygen Flow Rate 5 6 <Steven Henderson MD - Last Filed: 09/26/24 11:05> Course Course ED Course: Patient seen and examined. IV was placed patient was given IV Dilaudid and IV Zofran. Lactic acid lipase CBC CMP CT abdomen pelvis pending. <Ervin Osborne MD - Last Filed: 09/26/24 03:31> Reevaluation(s) Reevaluation #1: CT shows small-bowel obstruction with transition point near the umbilical hernia. I did review the CT with our local general surgeon and she advised me to try to reduce the hernia. I did give IV Dilaudid to try to get him to relax but was unsuccessful with manipulation getting that hernia to reduce. Also for I was instructed by the surgeon that the patient is not a good candidate to stay here for a surgical intervention due to his complex surgical history of the large biological verses mesh that will need to be placed. Arrangements are being made to transfer to tertiary care. <Ervin Osborne MD - Last Filed: 09/26/24 03:31> Reevaluation #2: Unfortunately, we are unable to find a bed in this area. [facility] all contacted. I did speak with [facility] and at this time they are also only taking trauma patients. My concern is that patient will worsen with incarcerated bowel. Fortunately, repeat lactate is improved from 3 to 1.3. However, patient does have continued pain and I do repeat Dilaudid 0.5 mg. We are planning on rechecking a lactate in 2 hours. Will continue to attempt placement. We are unable to attempt placement in the next few hours will talk to our surgeons about need for intervention here although this is not ideal as patient will likely need advanced cares that tertiary care can provide. when I went to speak with Gomez he was sleeping. He was breathing through his mouth and his oxygen monitor has slipped Off his finger. I did put that back on and O2 sats were around 81%. I did wake him up easily and oxygen rebounded to 90%. According to nursing staff his notes that he is supposed to wear CPAP. Clearly he has obstructive sleep apnea. Will be placing oxygen mask as he is a mouth breather and nasal cannula does not appear to be effective. No evidence of fever underlying pulmonary infection to explain the hypoxia. Patient does note he still has abdominal pain. I did explain we are doing our best to try to find him placement but thus far have been unsuccessful. Repeat lactate pending. <Luz Maria Ruano MD - Last Filed: 09/26/24 08:24> Reevaluation #3: 3rd lactate is 0.6. Continues to be improved. Patient does not have fever or evidence of sepsis at this time. Antibiotics have been started. I have been unable to place this patient and therefore have requested bedside consult with our surgeon. <Luz Maria Ruano MD - Last Filed: 09/26/24 08:24> Vital Signs Vital signs: Initial Vital Signs Temperature 98.7 F 09/26/24 01:17 Temperature Source Temporal Artery Scan 09/26/24 01:17 Pulse Rate 94 09/26/24 01:17 Pulse Rhythm Regular 09/26/24 01:17 Respiratory Rate 16 09/26/24 01:17 Blood Pressure 132/88 09/26/24 01:17 Blood Pressure Mean 102 09/26/24 01:17 Blood Pressure Position Sitting 09/26/24 01:17 Pulse Oximetry 93 09/26/24 01:17 Oxygen Delivery Method Room Air 09/26/24 01:17 Vital Signs Temperature 98.7 F 09/26/24 01:17 Pulse Rate 94 09/26/24 01:17 Respiratory Rate 16 09/26/24 01:17 Blood Pressure 132/88 09/26/24 01:17 Pulse Oximetry 93 09/26/24 01:17 Oxygen Delivery Method Room Air 09/26/24 01:17 Temperature 97.6 F 09/26/24 06:49 Pulse Rate 91 09/26/24 08:30 Respiratory Rate 22 09/26/24 08:30 Blood Pressure 104/59 L 09/26/24 06:48 Pulse Oximetry 91 09/26/24 08:30 Oxygen Delivery Method OxyMask 09/26/24 08:30 Oxygen Flow Rate 6 09/26/24 08:30 <Ervin Osborne MD - Last Filed: 09/26/24 03:31> Initial Vital Signs Temperature 98.7 F 09/26/24 01:17 Temperature Source Temporal Artery Scan 09/26/24 01:17 Pulse Rate 94 09/26/24 01:17 Pulse Rhythm Regular 09/26/24 01:17 Respiratory Rate 16 09/26/24 01:17 Blood Pressure 132/88 09/26/24 01:17 Blood Pressure Mean 102 09/26/24 01:17 Blood Pressure Position Sitting 09/26/24 01:17 Pulse Oximetry 93 09/26/24 01:17 Oxygen Delivery Method Room Air 09/26/24 01:17 Vital Signs Temperature 98.7 F 09/26/24 01:17 Pulse Rate 94 09/26/24 01:17 Respiratory Rate 16 09/26/24 01:17 Blood Pressure 132/88 09/26/24 01:17 Pulse Oximetry 93 09/26/24 01:17 Oxygen Delivery Method Room Air 09/26/24 01:17 Temperature 97.6 F 09/26/24 06:49 Pulse Rate 91 09/26/24 08:30 Respiratory Rate 22 09/26/24 08:30 Blood Pressure 104/59 L 09/26/24 06:48 Pulse Oximetry 91 09/26/24 08:30 Oxygen Delivery Method OxyMask 09/26/24 08:30 Oxygen Flow Rate 6 09/26/24 08:30 <Luz Maria Ruano MD - Last Filed: 09/26/24 08:24> Initial Vital Signs Temperature 98.7 F 09/26/24 01:17 Temperature Source Temporal Artery Scan 09/26/24 01:17 Pulse Rate 94 09/26/24 01:17 Pulse Rhythm Regular 09/26/24 01:17 Respiratory Rate 16 09/26/24 01:17 Blood Pressure 132/88 09/26/24 01:17 Blood Pressure Mean 102 09/26/24 01:17 Blood Pressure Position Sitting 09/26/24 01:17 Pulse Oximetry 93 09/26/24 01:17 Oxygen Delivery Method Room Air 09/26/24 01:17 Vital Signs Temperature 98.7 F 09/26/24 01:17 Pulse Rate 94 09/26/24 01:17 Respiratory Rate 16 09/26/24 01:17 Blood Pressure 132/88 09/26/24 01:17 Pulse Oximetry 93 09/26/24 01:17 Oxygen Delivery Method Room Air 09/26/24 01:17 Temperature 97.6 F 09/26/24 06:49 Pulse Rate 91 09/26/24 08:30 Respiratory Rate 22 09/26/24 08:30 Blood Pressure 104/59 L 09/26/24 06:48 Pulse Oximetry 91 09/26/24 08:30 Oxygen Delivery Method OxyMask 09/26/24 08:30 Oxygen Flow Rate 6 09/26/24 08:30 <Steven Henderson MD - Last Filed: 09/26/24 11:05> Medications Administered Medications: Generic Name Dose Route Start Last Admin Trade Name Freq PRN Reason Stop Dose Admin Sodium Chloride 1,000 mls @ 150 mls/hr 09/26/24 03:38 09/26/24 10:50 0.9 % Sodium Chloride 1000 Ml IV Infused .Q6H40M JEEVAN Infusion Discontinued Medications Generic Name Dose Route Start Last Admin Trade Name Freq PRN Reason Stop Dose Admin Hydromorphone HCl 0.5 mg 09/26/24 01:22 09/26/24 01:42 Hydromorphone 0.5 Mg/0.5 Ml Inj IVP 09/26/24 01:23 0.5 mg ONCE ONE Administration Hydromorphone HCl 0.5 mg 09/26/24 04:25 09/26/24 04:28 Hydromorphone 0.5 Mg/0.5 Ml Inj IVP 09/26/24 04:26 0.5 mg ONCE ONE Administration Sodium Chloride 1,000 mls @ 1,000 mls/hr 09/26/24 01:40 09/26/24 02:40 0.9 % Sodium Chloride 1000 Ml IV 02/28/25 02:39 Infused .Q1H JEEVAN Infusion Piperacillin Sod/Tazobactam 100 mls @ 200 mls/hr 09/26/24 04:05 09/26/24 04:46 Sod 3.375 gm/ Sodium Chloride IVPB 09/26/24 04:06 Infused ONCE ONE Infusion Piperacillin Sod/Tazobactam 100 mls @ 200 mls/hr 09/26/24 10:17 09/26/24 10:41 Sod 3.375 gm/ Sodium Chloride IVPB 09/26/24 10:18 200 mls/hr ONCE ONE Administration Ondansetron HCl 4 mg 09/26/24 01:22 09/26/24 01:42 Ondansetron 2 Mg/Ml Inj IVP 09/26/24 01:23 4 mg ONCE ONE Administration <Ervin Osborne MD - Last Filed: 09/26/24 03:31> Generic Name Dose Route Start Last Admin Trade Name Freq PRN Reason Stop Dose Admin Sodium Chloride 1,000 mls @ 150 mls/hr 09/26/24 03:38 09/26/24 10:50 0.9 % Sodium Chloride 1000 Ml IV Infused .Q6H40M JEEVAN Infusion Discontinued Medications Generic Name Dose Route Start Last Admin Trade Name Freq PRN Reason Stop Dose Admin Hydromorphone HCl 0.5 mg 09/26/24 01:22 09/26/24 01:42 Hydromorphone 0.5 Mg/0.5 Ml Inj IVP 09/26/24 01:23 0.5 mg ONCE ONE Administration Hydromorphone HCl 0.5 mg 09/26/24 04:25 09/26/24 04:28 Hydromorphone 0.5 Mg/0.5 Ml Inj IVP 09/26/24 04:26 0.5 mg ONCE ONE Administration Sodium Chloride 1,000 mls @ 1,000 mls/hr 09/26/24 01:40 09/26/24 02:40 0.9 % Sodium Chloride 1000 Ml IV 09/26/24 02:39 Infused .Q1H JEEVAN Infusion Piperacillin Sod/Tazobactam 100 mls @ 200 mls/hr 09/26/24 04:05 09/26/24 04:46 Sod 3.375 gm/ Sodium Chloride IVPB 09/26/24 04:06 Infused ONCE ONE Infusion Piperacillin Sod/Tazobactam 100 mls @ 200 mls/hr 09/26/24 10:17 09/26/24 10:41 Sod 3.375 gm/ Sodium Chloride IVPB 09/26/24 10:18 200 mls/hr ONCE ONE Administration Ondansetron HCl 4 mg 09/26/24 01:22 09/26/24 01:42 Ondansetron 2 Mg/Ml Inj IVP 09/26/24 01:23 4 mg ONCE ONE Administration <Luz Maria Ruano MD - Last Filed: 09/26/24 08:24> Generic Name Dose Route Start Last Admin Trade Name Freq PRN Reason Stop Dose Admin Sodium Chloride 1,000 mls @ 150 mls/hr 09/26/24 03:38 09/26/24 10:50 0.9 % Sodium Chloride 1000 Ml IV Infused .Q6H40M JEEVAN Infusion Discontinued Medications Generic Name Dose Route Start Last Admin Trade Name Freq PRN Reason Stop Dose Admin Hydromorphone HCl 0.5 mg 09/26/24 01:22 09/26/24 01:42 Hydromorphone 0.5 Mg/0.5 Ml Inj IVP 09/26/24 01:23 0.5 mg ONCE ONE Administration Hydromorphone HCl 0.5 mg 09/26/24 04:25 09/26/24 04:28 Hydromorphone 0.5 Mg/0.5 Ml Inj IVP 09/26/24 04:26 0.5 mg ONCE ONE Administration Sodium Chloride 1,000 mls @ 1,000 mls/hr 09/26/24 01:40 09/26/24 02:40 0.9 % Sodium Chloride 1000 Ml IV 09/26/24 02:39 Infused .Q1H JEEVAN Infusion Piperacillin Sod/Tazobactam 100 mls @ 200 mls/hr 09/26/24 04:05 09/26/24 04:46 Sod 3.375 gm/ Sodium Chloride IVPB 09/26/24 04:06 Infused ONCE ONE Infusion Piperacillin Sod/Tazobactam 100 mls @ 200 mls/hr 09/26/24 10:17 09/26/24 10:41 Sod 3.375 gm/ Sodium Chloride IVPB 09/26/24 10:18 200 mls/hr ONCE ONE Administration Ondansetron HCl 4 mg 09/26/24 01:22 09/26/24 01:42 Ondansetron 2 Mg/Ml Inj IVP 09/26/24 01:23 4 mg ONCE ONE Administration <Steven Henderson MD - Last Filed: 09/26/24 11:05> MDM - Abdominal Pain MDM Narrative Medical decision making narrative: 1. Small-bowel obstruction - this is complicated as patient has had 2 previous bowel resections history of an ostomy and takedown, cholecystectomy, appendectomy. Patient noted to have periumbilical pain and there appears to be 2 different possible transition points on the CT. Patient has a white count that is elevated at 12.58, normal electrolyte panel, initial lactate 3 with repeat at 1.3 and normal lipase. Attempts at reduction were not successful by previous physician. At this time patient has received IV fluids, Zosyn. He is high risk for surgery given multiple surgeries in the past, likely need for extensive mash, body habitus and history of ISAIAH. Initial phone calls to the [facility] and [facility] systems were unsuccessful for placement. I did ask for nursing staff to check with [facility] and we are on the waiting list at [facility] at this time. 2. ISAIAH- patient's O2 sats did drop into the low 80s while he is sleeping. He is easily arousable. We have placed an oxygen mask on him as he is a mouth breather as the nasal cannula was not sufficient. No evidence of underlying pneumonia. 3. Elevated BMI-likely Pickwickian effect as well. 4. history of hypertension 5. Disposition-we are currently on a waiting list at [facility] and [facility]. Will have our staff start calling again to see if any beds are being opened up. I have signed this patient out to my partner Dr. Henderson. Surgical consult pending at this time. <Luz Maria Ruano MD - Last Filed: 09/26/24 08:24> 1. Small-bowel obstruction - this is complicated as patient has had 2 previous bowel resections history of an ostomy and takedown, cholecystectomy, appendectomy. Patient noted to have periumbilical pain and there appears to be 2 different possible transition points on the CT. Patient has a white count that is elevated at 12.58, normal electrolyte panel, initial lactate 3 with repeat at 1.3 and normal lipase. Attempts at reduction were not successful by previous physician. At this time patient has received IV fluids, Zosyn. He is high risk for surgery given multiple surgeries in the past, likely need for extensive mash, body habitus and history of ISAIAH. Initial phone calls to the [facility], [facility] and [facility] systems were unsuccessful for placement. I did ask for nursing staff to check with [facility] and we are on the waiting list at [facility] at this time. 2. ISAIAH- patient's O2 sats did drop into the low 80s while he is sleeping. He is easily arousable. We have placed an oxygen mask on him as he is a mouth breather as the nasal cannula was not sufficient. No evidence of underlying pneumonia. 3. Elevated BMI-likely Pickwickian effect as well. 4. history of hypertension 5. Disposition-we are currently on a waiting list at [facility] and [facility]. Will have our staff start calling again to see if any beds are being opened up. I have signed this patient out to my partner Dr. Henderson. Surgical consult pending at this time. There was a possibility for the patient to be transferred to [facility] but after discussion with the surgeon there it seemed better served to remain here. Dr. Peña, surgeon on-call, came to visit the patient and will take him to the operating room here. The patient did receive another dose of Zosyn under my watch. <Steven Henderson MD - Last Filed: 09/26/24 11:05> Medical Records Attestation: I reviewed the patient's medical records. <Luz Maria Rauno MD - Last Filed: 09/26/24 08:24> Lab Data Attestation: I reviewed the patient's lab results. <Luz Maria Ruano MD - Last Filed: 09/26/24 08:24> Labs: Lab Results 09/26/24 09/26/24 09/26/24 Range/Units 01:28 03:45 06:14 WBC 12.58 H (4.50-11.00) K/uL RBC 4.94 (4.30-5.90) m/uL Hgb 15.0 (13.5-17.5) gm/dL Hct 45.3 (37.0-53.0) % MCV 92 (80-100) fL MCH 30 (26-34) pg MCHC 33 (32-36) gm/dL RDW Coeff of Greg 13.3 (11.5-15.5) % Plt Count 298 (140-440) K/uL Neut % (Auto) 80.2 H (42.0-72.0) % Lymph % (Auto) 11.4 L (20-44) % Alexander % (Auto) 6.1 (0.0-11.0) % Eos % (Auto) 1.7 (0.0-7.0) % Baso % (Auto) 0.4 (0.0-3.0) % Neut # (Auto) 10.10 H (1.7-7.0) K/uL Lymph # (Auto) 1.40 (0.90-2.90) K/uL Alexander # (Auto) 0.80 (0.00-0.90) K/UL Eos # (Auto) 0.20 (0.00-0.50) K/uL Baso # (Auto) 0.10 (0.00-0.30) K/uL Abs Immat Gran (auto) 0.00 (0.00-0.30) K/uL Imm/Tot Granulo (auto) 0.2 % Sodium 137 (135-149) mmol/L Potassium 4.4 (3.6-5.1) mmol/L Chloride 99 (96-114) mmol/L Carbon Dioxide 25 (20-32) mmol/L Anion Gap 13 (7-15) mEq/L BUN 25 (7-30) mg/dL Creatinine 1.0 (0.5-1.5) mg/dL Estimated Creat Clear 81.58 Estimated GFR 85 ml/min Glucose 197 H (60-115) mg/dL Lactate 3.0 H 1.3 0.6 (0.5-1.9) mmol/L Calcium 9.6 (8.4-10.6) mg/dL Total Bilirubin 0.5 (0.1-1.5) mg/dL AST 40 H (12-35) U/L ALT 40 (4-50) U/L Alkaline Phosphatase 90 (40-150) U/L Total Protein 7.6 (6.0-8.3) g/dL Albumin 4.6 (3.3-5.0) g/dL Lipase 227 (23-300) U/L <Ervin Osborne MD - Last Filed: 09/26/24 03:31> Lab Results 09/26/24 09/26/24 09/26/24 Range/Units 01:28 03:45 06:14 WBC 12.58 H (4.50-11.00) K/uL RBC 4.94 (4.30-5.90) m/uL Hgb 15.0 (13.5-17.5) gm/dL Hct 45.3 (37.0-53.0) % MCV 92 (80-100) fL MCH 30 (26-34) pg MCHC 33 (32-36) gm/dL RDW Coeff of Greg 13.3 (11.5-15.5) % Plt Count 298 (140-440) K/uL Neut % (Auto) 80.2 H (42.0-72.0) % Lymph % (Auto) 11.4 L (20-44) % Alexander % (Auto) 6.1 (0.0-11.0) % Eos % (Auto) 1.7 (0.0-7.0) % Baso % (Auto) 0.4 (0.0-3.0) % Neut # (Auto) 10.10 H (1.7-7.0) K/uL Lymph # (Auto) 1.40 (0.90-2.90) K/uL Alexander # (Auto) 0.80 (0.00-0.90) K/UL Eos # (Auto) 0.20 (0.00-0.50) K/uL Baso # (Auto) 0.10 (0.00-0.30) K/uL Abs Immat Gran (auto) 0.00 (0.00-0.30) K/uL Imm/Tot Granulo (auto) 0.2 % Sodium 137 (135-149) mmol/L Potassium 4.4 (3.6-5.1) mmol/L Chloride 99 (96-114) mmol/L Carbon Dioxide 25 (20-32) mmol/L Anion Gap 13 (7-15) mEq/L BUN 25 (7-30) mg/dL Creatinine 1.0 (0.5-1.5) mg/dL Estimated Creat Clear 81.58 Estimated GFR 85 ml/min Glucose 197 H (60-115) mg/dL Lactate 3.0 H 1.3 0.6 (0.5-1.9) mmol/L Calcium 9.6 (8.4-10.6) mg/dL Total Bilirubin 0.5 (0.1-1.5) mg/dL AST 40 H (12-35) U/L ALT 40 (4-50) U/L Alkaline Phosphatase 90 (40-150) U/L Total Protein 7.6 (6.0-8.3) g/dL Albumin 4.6 (3.3-5.0) g/dL Lipase 227 (23-300) U/L <Luz Maria Ruano MD - Last Filed: 09/26/24 08:24> Lab Results 09/26/24 09/26/24 09/26/24 Range/Units 01:28 03:45 06:14 WBC 12.58 H (4.50-11.00) K/uL RBC 4.94 (4.30-5.90) m/uL Hgb 15.0 (13.5-17.5) gm/dL Hct 45.3 (37.0-53.0) % MCV 92 (80-100) fL MCH 30 (26-34) pg MCHC 33 (32-36) gm/dL RDW Coeff of Greg 13.3 (11.5-15.5) % Plt Count 298 (140-440) K/uL Neut % (Auto) 80.2 H (42.0-72.0) % Lymph % (Auto) 11.4 L (20-44) % Alexander % (Auto) 6.1 (0.0-11.0) % Eos % (Auto) 1.7 (0.0-7.0) % Baso % (Auto) 0.4 (0.0-3.0) % Neut # (Auto) 10.10 H (1.7-7.0) K/uL Lymph # (Auto) 1.40 (0.90-2.90) K/uL Alexander # (Auto) 0.80 (0.00-0.90) K/UL Eos # (Auto) 0.20 (0.00-0.50) K/uL Baso # (Auto) 0.10 (0.00-0.30) K/uL Abs Immat Gran (auto) 0.00 (0.00-0.30) K/uL Imm/Tot Granulo (auto) 0.2 % Sodium 137 (135-149) mmol/L Potassium 4.4 (3.6-5.1) mmol/L Chloride 99 (96-114) mmol/L Carbon Dioxide 25 (20-32) mmol/L Anion Gap 13 (7-15) mEq/L BUN 25 (7-30) mg/dL Creatinine 1.0 (0.5-1.5) mg/dL Estimated Creat Clear 81.58 Estimated GFR 85 ml/min Glucose 197 H (60-115) mg/dL Lactate 3.0 H 1.3 0.6 (0.5-1.9) mmol/L Calcium 9.6 (8.4-10.6) mg/dL Total Bilirubin 0.5 (0.1-1.5) mg/dL AST 40 H (12-35) U/L ALT 40 (4-50) U/L Alkaline Phosphatase 90 (40-150) U/L Total Protein 7.6 (6.0-8.3) g/dL Albumin 4.6 (3.3-5.0) g/dL Lipase 227 (23-300) U/L <Steven Henderson MD - Last Filed: 09/26/24 11:05> Imaging Data CT scan - abdomen: Attestation: I have reviewed the pertinent imaging results. <Luz Maria Ruano MD - Last Filed: 09/26/24 08:24> Radiologist's impression: COMPARISON: CT abdomen and pelvis 05/08/2022. FINDINGS: Lower chest: Unremarkable. Liver: Unremarkable. Gallbladder and bile ducts: Cholecystectomy with stable mild prominence of the intrahepatic biliary ducts. Pancreas: Unremarkable. Spleen: Unremarkable. Adrenal glands: Unremarkable. Kidneys: Bilateral renal cysts. No suspicious renal lesion. No hydronephrosis or hydroureter. No urinary calculi. GI tract/abdominal wall: A pair of ventral abdominal wall hernia defects are noted, both containing bowel. Multiple loops of dilated fluid-filled small bowel measuring up to 4.5 cm are identified with probable transition point noted within the inferior of the 2 ventral abdominal wall hernia defects. Obstructed bowel loops are also noted entering the superior most hernia defect along with unobstructed colonic loops. Vasculature: No abdominal aortic aneurysm. Grossly patent vasculature. Lymph nodes: No suspicious lymphadenopathy. Peritoneum: No ascites or pneumoperitoneum. Pelvis: Normal bladder. Unremarkable prostate and seminal vesicles. Bones: No acute abnormality. IMPRESSION: Small-bowel obstruction with probable transition point noted within the inferior of 2 adjacent ventral abdominal wall hernia defects, although obstructed loops of small bowel also course within the superior ventral abdominal wall hernia defect along with unobstructed colon. <Luz Maria Ruano MD - Last Filed: 09/26/24 08:24> Discharge Plan Discharge Clinical Impression: Partial small bowel obstruction <Ervin Osborne MD - Last Filed: 09/26/24 03:31> Patient Disposition: [facility] <Ervin Osborne MD - Last Filed: 09/26/24 03:31> Condition: Stable <Ervin Osborne MD - Last Filed: 09/26/24 03:31> Activity Level: Other <Ervin Osborne MD - Last Filed: 09/26/24 03:31> Other <Luz Maria Ruano MD - Last Filed: 09/26/24 08:24> Other <Steven Henderson MD - Last Filed: 09/26/24 11:05> Discharge Diet: Other <Ervin Osborne MD - Last Filed: 09/26/24 03:31> Other <Luz Maria Ruano MD - Last Filed: 09/26/24 08:24> Other <Steven Henderson MD - Last Filed: 09/26/24 11:05> Diet Detail: NPO <Ervin Osborne MD - Last Filed: 09/26/24 03:31> NPO <Luz Maria Ruano MD - Last Filed: 09/26/24 08:24> NPO <Steven Henderson MD - Last Filed: 09/26/24 11:05> Prescriptions: No Action chlorthalidone 25 mg tablet 25 mg PO DAILY spironolactone 25 mg tablet 12.5 mg PO DAILY amlodipine 10 mg tablet 10 mg PO DAILY lisinopril 40 mg tablet 40 mg PO DAILY rosuvastatin 10 mg tablet 10 mg PO HS bupropion HCl 300 mg tablet extended release 24 hr 300 mg PO DAILY acetaminophen 500 mg tablet 500 - 1,000 mg PO Q6H PRN cholecalciferol (vitamin D3) [Vitamin D3] 25 mcg (1,000 unit) tablet 25 mcg PO DAILY omega-3 fatty acids-fish oil [Fish Oil] 360-1,200 mg capsule 1 cap PO DAILY multivitamin [Multiple Vitamins] Tablet 1 tab PO DAILY sennosides [Chely-beatriz] 8.6 mg tablet 17.2 - 25.8 mg PO DAILY senna 8.6 mg capsule 8.6 mg PO BID PRN (Reason: constipation) Qty: 90 10RF <Ervin Osborne MD - Last Filed: 09/26/24 03:31> Stand Alone Forms: MyHealth Info Instructions <Ervin Osborne MD - Last Filed: 09/26/24 03:31>
--- OUTSIDE RECORDS SUMMARY | 2024-09-26 01:39 | XMS_ITS | Clinical Summary ---
Author Organization [facility] Address [facility] [place] [address] Care Team Providers Care Event Staff Name Role Phone Luz Jimenez Primary Care Provider [phone] Allergies No known active allergies Medications multivitamin (MVI) tablet Take 1 tablet by mouth once daily. 0 013 Active fish oil-omega-3 fatty acids (FISH OIL) 1,200-360 mg cap Take 1 capsule by mouth once daily. One capsule is 1200 mg-360 mg Active acetaminophen (TYLENOL EXTRA STRGTH) 500 mg tabletIndications :Abscess of sigmoid colon due to diverticulitis Take 1-2 tablets by mouth every 6 hours if needed. Max acetaminophen dose: 4000mg in 24 hrs. 0 017 Active Xavnkwcr-Rvta-Gyf lag-Hyalur Ac 225-518-16-2 mg cap Take by mouth. 0 020 Active cholecalciferol (Vitamin D) 1,000 unit capsule Take 1 Capsule (1,000 units) by mouth once daily. 0 022 Active amLODIPine (NORVASC) 10 mg tabletIndications :Essential hypertension Take 1 Tablet (10 mg) by mouth once daily. 90 Tablet 3 025 Active buPROPion (WELLBUTRIN XL) 300 mg Extended-Release tabletIndications :Depression, recurrent Take 1 Tablet (300 mg) by mouth once daily. 90 Tablet 3 025 Active lisinopriL (PRINIVIL; ZESTRIL) 40 mg tabletIndications :Hypertension Take 1 Tablet (40 mg) by mouth once daily. 90 Tablet 3 025 Active rosuvastatin (CRESTOR) 10 mg tabletIndications :Hyperlipidemia, unspecified hyperlipidemia type Take 1 Tablet (10 mg) by mouth at bedtime. 90 Tablet 3 025 Active spironolactone (ALDACTONE) 25 mg tabletIndications :HTN (hypertension) Take 0.5 Tablets (12.5 mg) by mouth once daily in the morning. 45 Tablet 3 025 Active tamsulosin 0.4 mg capsuleIndication s:BPH without urinary obstruction Take 2 Capsules (0.8 mg) by mouth once daily after a meal. 180 Capsule 3 025 Active sennosides (Senna) 8.6 mg tabletIndications :Drug-induced constipation TAKE 2-4 TABLETS BY MOUTH ONCE DAILY DIRECTED 100 Tablet 025 Active chlorthalidone (HYGROTON) 25 mg tabletIndications :Hypertension Take 1 Tablet (25 mg) by mouth once daily. 90 Tablet 2 025 Active blood-glucose meterIndications: Newly diagnosed diabetes (HC) by Not Applicable route. Dispense glucometer covered by pts insurance. 1 Each 025 Active lancetsIndication s:Newly diagnosed diabetes (HC) As directed. Test 2 times per day. 100 Each 12 025 Active blood sugar diagnostic (Blood Glucose Test) stripIndications: Newly diagnosed diabetes (HC) Test 2 times per day. 100 Each 12 025 Active Lactobacillus acidophilus (PROBIOTIC ACIDOPHILUS ORAL) Take by mouth. Active escitalopram oxalate (LEXAPRO) 20 mg tabletIndications :Depression, recurrent Take 1 Tablet (20 mg) by mouth once daily in the morning. 90 Tablet 3 025 Active metFORMIN (GLUCOPHAGE XR) 500 mg Extended-Release tabletIndications :Newly diagnosed diabetes (HC) Start 500mg daily, increase by 500mg weekly til goal dose of 2000mg daily. 120 Tablet 1 025 Active Gauze Bandage 4 X 4 Indications:Woun d disruption, post-op, skin, sequela For home use. 10 Each 5 022 2024 Discontinued(* Med complete/Regim en complete/Level of care change) Non-Adherent Bandage (Curity Abdominal Pad) 5 X 9 bndgIndications:W ound disruption, post-op, skin, sequela Apply topically to affected area(s). 10 Each 5 022 2024 Discontinued(* Med complete/Regim en complete/Level of care change) sennosides (Senna) 8.6 mg tabletIndications :Drug-induced constipation TAKE 2 TO 4 TABLETS BY MOUTH ONCE DAILY DIRECTED 120 Tablet 024 2024 Discontinued chlorthalidone (HYGROTON) 25 mg tabletIndications :Hypertension Take 1 Tablet (25 mg) by mouth once daily. 90 Tablet 3 025 2024 Discontinued(* Availability/F ormulary change/Cost of medication) escitalopram oxalate (LEXAPRO) 10 mg tabletIndications :Depression, recurrent Take 1 Tablet (10 mg) by mouth once daily in the morning. 90 Tablet 3 025 2024 Discontinued(* Medication adjustment) sennosides (Senna) 8.6 mg tabletIndications :Drug-induced constipation TAKE 2-4 TABLETS BY MOUTH ONCE DAILY DIRECTED 100 Tablet 025 2024 Discontinued(R eorder (E-cancel not sent)) Active Problems Problem Noted Date Diagnosed Date Essential hypertension 11/15/2018 Depression 02/14/2017 Abscess of sigmoid colon due to diverticulitis 0 02/14/2017 Conductive hearing loss of l eft ear with unrestricted hearing of right ear 07/19/2016 Tobacco dependence 03/24/2014 Overview (10/05/2015): Quit 5wks ago as of 10/05/2015 Obesity 03/26/2013 History of colostomy Resolved Problems Problem Noted Date Diagnosed Date Resolved Date Elevated alkaline phosphatase level 08/08/2013 02/14/2017 Elevated fasting glucose 08/08/2013 Encounters Date Type Department Care Team Description 09/22/2024 11:00 AM JAVA SOFTWARE DEVELOPER Patient Outreach [address] [address] Telehealth (DM education- follow up) 09/19/2024 Travel 09/10/2024 10:00 AM JAVA SOFTWARE DEVELOPER Phone Office Visit [facility] [address] [place] [address] Luz Jimenez DO Anxiety; Medication Management (diabetes) 09/10/2024 Travel 09/09/2024 11:00 AM JAVA SOFTWARE DEVELOPER Patient Outreach [address] [place] [address] Debra Belcher RN Diabetes (New diagnosis/assessment ) 09/08/2024 Travel 09/07/2024 Orders Only [facility] [address] [facility] [place] [address] Luz Jimenez DO <No scans attached> 09/04/2024 Refill [facility] [address] [place] [place] [address] Luz Jimenez DO Refill Request (Chlorthalidone) 09/02/2024 3:45 PM JAVA SOFTWARE DEVELOPER Orders Only [facility] [address] [place] [address] Lab, [facility] 09/02/2024 Travel 08/29/2024 Refill [facility] [address] [place] [place] [address] Luz Jimenez DO Refill Request (Senna) 08/08/2024 Orders Only [facility] [address] [place] [address] Luz Jimenez DO <No scans attached> 08/04/2024 3:10 PM JAVA SOFTWARE DEVELOPER Office Visit [facility] [address] [place] [address] Luz Jimenez DO Physical (63 year old physical) 08/04/2024 Travel 07/17/2024 Refill [facility] [address] [place] [address] Luz Jimenez DO Refill Request (Bupropion, Lisinopril, Amlodipine, Senna, Spironolactone, Chlorthalidone, Tamsulosin) from Last 3 Months Immunizations Name Administration Dates Next Due COVID-19 vaccine (toucanBoxBio NTech 30mcg/0.3mL) 12YO+ BIVALENT PF, MDV 08/31/2022 COVID-19 vaccine (Neocase Software-Bio NTech 30mcg/0.3mL) 12YO+ RICHARD-SUCROSE PF, MDV 12/01/2021 COVID-19 vaccine (toucanBoxBio NTech 30mcg/0.3mL) PF, MDV 12/10/2020,11/19/2020 DT (Age < 7 years) 04/29/1997 Influenza, IIV4 08/12/2018,05/15/2017,05/27/2016 Td, Preservative Free (age >= 7 Years) 6 Tdap 08/17/2006 Zoster (Shingrix-RZV, recombinant) 02/17/2020, Family History Medical History Relation Name Comments Cancer-colon Maternal Grandfather Hypertension Mother Cancer Paternal Grandfather lung, n onsmoker Heart Disease Paternal Uncle [place] Relation Name Status Comments Maternal Grandfather Mother Paternal Grandfather Paternal Uncle Social History Tobacco Use Types Packs/Day Years Used Date Smoking Tobacco: Former Pipe Q uit: 10/27/2014 Cigars Quit: 10/28/19 15 Passive Smoke Exposure: Never Smokeless Tobacco: Never Tobacco Cessation:Counseling Given: Yes Alcohol Use Standard Drinks/Week Comments Yes 0 (1 standard drink = 0.6 oz pure alcohol) once weekly 1 drink at a sitting PHQ-2 Answer Date Recorded PHQ-2 TOTAL SCORE 6 09/08/2024 Social Connections Answer Date Recorded Do you often feel lonely or isolated from those around you? 0 08/04/2024 Financial Resource Strain Answer Date R ecorded Difficulty of Paying Living Expenses 3 08/04/2024 Difficulty of Paying Living Expenses Not on file 08/04/2024 Food Insecurity Answer Date Recorded Do you worry your food will run out before you are able to buy more? 1 08/04/2024 Transportation Needs Answer Date Record ed Does lack of transportation keep you from medica l appointments? 1 08/04/2024 Does lack of transportation keep you from work, meetings or getting things that you need? 1 08/04/2024 Housing Stability Answer Date Recorded What is your housing situation today? 1 08/04/2024 Utilities Answer Date Recorded Do you have trouble paying f or utilities (for example, heat, electricity, water, phone)? 1 08/04/2024 Sex and Gender Information Value Date Recorded Sex Assigned at Not on file Legal Sex Male 11:28 AM CDT Gender Identity Not on file Sexual Orientation Not on file Obstetrics History Last Filed Vital Signs Vital Sign Reading Time Taken Comments Blood Pressure 134/78 08/04/2024 3:46 PM JAVA SOFTWARE DEVELOPER Pulse 100 08/04/2024 3:14 PM JAVA SOFTWARE DEVELOPER Temperature 36.4 C (97.5 F) 05/23/2022 2:08 PM CDT Respiratory Rate 16 06/22/2017 8:00 AM JAVA SOFTWARE DEVELOPER Oxygen Saturation 93% 08/04/2024 3:14 PM JAVA SOFTWARE DEVELOPER Inhaled Oxygen Concentration - - Weight 176.9 kg (390 lb) 08/04/2024 3:14 PM JAVA SOFTWARE DEVELOPER Height 180.5 cm (5' 11.06) 08/04/2024 3:[address] Body Mass Index 54.3 08/04/2024 3:14 PM JAVA SOFTWARE DEVELOPER Plan of Treatment Health Maintenance Due Date Last Done Comments Pneumococcal series for age 50+ (1 of 2 - PCV) 1980 RSV vaccine for adults or (1 - Risk 60-74 years 1-dose series) 2021 COVID-19 vaccine series ( season) 2024 08/31/2022, 12/01/2021, 12/10/2020, Additional history exists Influenza for age 50-64 03/30/2024 08/12/19 19, 05/15/2017, 05/27/2016 BMI (ht and wt on same day) for age 18+ 08/04/2025 08/04/2024, 02/15/2023, 12/29/2021, Additional history exists Depression screening for age 12+ 09/10/2025 09/10/2024, 09/08/2024, 08/04/2024, Additional history exists Tetanus booster 05/27/2026 05/27/2016, 08/17/2006 Lipids for age 45-75 08/04/2029 08/04/2024, 02/15/2023, 12/01/2021, Additional history exists Colonoscopy through age 75 02/11/203002/11, 02/12/2020, 02/12/2020 Tdap Completed 08/17/2006 Hepatitis C screening for ag e 18-79 Completed 10/28/2019 Zoster (shingles) series for age 50+ Completed 02/17/2020, 10/28/2019 HIV for age 15-65 Completed 08/31/2022 Medical Devices Implanted Type Area Monotype Operator Device Identifier Shelf Expiration Date Model / Serial / Lot Implnt Porp 2mm Centered Titan [id number] - [id number] Implanted:Qty: 1 on 04/16/2013 by Vini Sarah MD at [facility] Left: Ear Olympus [employer] Of [facility] 12/27/2022 [id number] / / [id number] Implnt Porp 2mm Centered Titan [id number] - [id number] Implanted:Qty: 1 on 10/08/2015 by Vini Sarah MD at [facility] Left: Ear Olympus Cam Of [facility] 08/09/2025 [id number] / / [id number] Magnet Cochlear Baha [id number] Screw Conical - [id number] Implanted:Qty: 1 on 09/29/2016 by Vini Sarah MD at [facility] Left: Cranium Cochlear [employer] 01/11/2021 [id number] / / [id number] Screw Cochlear 4mm Baha Bi300 Titnm - [id number] Implanted:Qty: 1 on 09/29/2016 by Vini Sarah MD at [facility] Left: Cranium [employer]chle[employer] 11/07/2020 [id number] / / [id number] Procedures Procedure Name Priority Date/Time Associated Diagnosis Comments HEMOGLOBIN A1C Routine 09/02/2024 12:18 PM JAVA SOFTWARE DEVELOPER Elevated glucose LDL CHOLESTEROL,DIRECT Routine 08/04/2024 4:15 PM JAVA SOFTWARE DEVELOPER Hyperlipidemia, unspecified hyperlipidemia type BASIC METABOLIC PANEL Routine 08/04/2024 4:15 PM JAVA SOFTWARE DEVELOPER Hypertension PSA TOTAL Routine 08/04/2024 4:15 PM JAVA SOFTWARE DEVELOPER BPH without urinary obstruction LC HIV-1/O/2, 4TH GENERATION Routine 08/31/2022 4:28 PM JAVA SOFTWARE DEVELOPER Screening for HIV (human immunodeficiency virus) COLONOSCOPY SCREENING Routine 02/12/2020 7:45 AM CDT Screening for colon cancer Diverticular disease of colon ANTI HCV Routine 10/28/2019 3:23 PM CDT Need for hepatitis C screening test from Last 3 Months or Most Recently Relevant to Health Maintenance Results * (ABNORMAL) HEMOGLOBIN A1C (09/02/2024 12:18 PM JAVA SOFTWARE DEVELOPER) HEMOGLOBIN A1C 8.2(H) <5.7 % of total Hgb [facility] Comment: For someone without known diabetes, a hemoglobin A1c value of 6.5% or greater indicates that they may have diabetes and this should be confirmed with a follow-up test. For someone with known diabetes, a value <7% indicates that their diabetes is well controlled and a value greater than or equal to 7% indicates suboptimal control. A1c targets should be individualized based on duration of diabetes, age, comorbid conditions, and other considerations. Currently, no consensus exists regarding use of hemoglobin A1c for diagnosis of diabetes for children. Blood BLOOD SPECIMEN / Unknown 09/02/2024 12:18 PM JAVA SOFTWARE DEVELOPER 09/02/2024 12:19 PM JAVA SOFTWARE DEVELOPER Luz Jimenez DO CHEMISTRY Final Resu lt [facility] [address] [place] [address], [facility] [address] [place] [address] * PSA TOTAL (08/04/2024 4:15 PM JAVA SOFTWARE DEVELOPER) PSA, TOTAL 0.42 < OR = 4.00 ng/mL [facility] Comment: The total PSA value from this assay system is standardized against the WHO standard. The test result will be approximately 20% lower when compared to the equimolar-standardized total PSA (Miranda Jese). Comparison of serial PSA results should be interpreted with this fact in mind. This test was performed using the Siemens chemiluminescent method. Values obtained from different assay methods cannot be used interchangeably. PSA levels, regardless of value, should not be interpreted as absolute evidence of the presence or absence of disease. Blood BLOOD SPECIMEN / Unknown 08/04/2024 4:15 PM JAVA SOFTWARE DEVELOPER 08/04/2024 4:16 PM JAVA SOFTWARE DEVELOPER Luz Richardsonsarah CHEMISTRY Final Resu lt Performing Organization Address [facility]/ZIP Co de Phone Number [facility] [address] [place] [address], [facility] [address] [place] [address] * LDL CHOLESTEROL,DIRECT (08/04/2024 4:15 PM JAVA SOFTWARE DEVELOPER) DIRECT LDL 38 <100 mg/dL [facility] Comment: Desirable range <100 mg/dL for primary prevention; <70 mg/dL for patients with CHD or diabetic patients with > or = 2 CHD risk factors. Blood BLOOD SPECIMEN / Unknown 08/04/2024 4:15 PM JAVA SOFTWARE DEVELOPER 08/04/2024 4:16 PM JAVA SOFTWARE DEVELOPER [facility] Karin Jimenez CHEMISTRY Final Resu Performing Organization Address [facility] Co de Phone Number [facility] [address] [place] [address], [facility] [address] [place] [address] * (ABNORMAL) BASIC METABOLIC PANEL (08/04/2024 4:15 PM JAVA SOFTWARE DEVELOPER) GLUCOSE 189(H) 65 - 99 mg/dL [facility] Comment: Fasting reference interval For someone without known diabetes, a glucose value >125 mg/dL indicates that they may have diabetes and this should be confirmed with a follow-up test. UREA NITROGEN (BUN) 20 7 - 25 mg/dL [facility] CREATININE 0.84 0.70 - 1.35 mg/dL [facility] EGFR 99 > OR = 60 mL/min/1. 73m2 [facility] BUN/CREATININE RATIO SEE NOTE: 6 - 22 (calc) [facility] Comment: Not Reported: BUN and Creatinine are within reference range. SODIUM 140 135 - 146 mmol/L [facility] POTASSIUM 3.9 3.5 - 5.3 mmol/L [facility] CHLORIDE 101 98 - 110 mmol/L [facility] CARBON DIOXIDE 28 20 - 32 mmol/L [facility] ELECTROLYTE BALANCE 11 7 - 17 mmol/L (calc) [facility] CALCIUM 9.8 8.6 - 10.3 mg/dL [facility] Blood BLOOD SPECIMEN / Unknown 08/04/2024 4:15 PM JAVA SOFTWARE DEVELOPER 08/04/2024 4:16 PM JAVA SOFTWARE DEVELOPER Luz Jimenez DO CHEMISTRY Final Resu lt [facility] [address] [place] [address], [place] [phone] [facility] [address] [place] [address] * LC HIV-1/O/2, 4TH GENERATION (08/31/2022 4:28 PM JAVA SOFTWARE DEVELOPER) Pathologist [facility] HIV Scr 4th Gen Non Reactive Non Reactive 09/05/2022 4:08 AM JAVA SOFTWARE DEVELOPER [facility] Comment: HIV Negative HIV-1/HIV-2 antibodies and HIV-1 p24 antigen were NOT detected. There is no laboratory evidence of HIV infection. Blood BLOOD SPECIMEN / Unknown Venipuncture / Unknown 08/31/2022 4:28 PM JAVA SOFTWARE DEVELOPER 08/31/2022 4:28 PM JAVA SOFTWARE DEVELOPER N[facility]ative [facility] ([facility]) - 09/05/2022 4:08 AM JAVA SOFTWARE DEVELOPER Performed at: [address] [place] [id number] [employer]om[employer] Production Manager: Guillermo Oquendo MD, Phone: [phone] Luz Karin Jimenez DO LABORATORY Final Resu lt [facility] ([facility]) [facility] [place] [address], * COLONOSCOPY SCREENING (02/12/2020 7:45 AM CDT) Luz Jimenez DO GI PROCEDURE ORD Final Res ult * ANTI HCV (10/28/2019 3:23 PM CDT) HEPATITIS C ANTIBODY Non-React lopez Non-React lopez 10/28/2019 7:37 PM CDT [facility] Comment:Antibodies to HCV no t detected; does not exclude the possibility of exposure to HCV. Blood BLOOD SPECIMEN / Unknown Venipuncture / Unknown 10/28/2019 3:23 PM CDT 10/28/2019 3:23 PM CDT Luz Karin Jimenez DO SEND OUTS Final Resu lt [facility] [address] [place] [address], from Last 3 Months or Most Recently Relevant to Health Maintenance Insurance [facility] NON-NH-ITS Advance Directives * Full Code (Latest Code Status on File) Date Activated Date Inactivated Comments 06/19/2017 12:41 AM 06/22/2017 4:40 PM Question Answer Comments Code Status Discussion: Per Existing Order * Full Code Date Activated Date Inactivated Comments 06/18/2017 9:27 AM 06/18/2017 7:21 PM Question Answer Comments Code Status Discussion: Per Existing Order * Full Code Date Activated Date Inactivated Comments 02/22/2017 9:33 AM 02/27/2017 2:14 PM Question Answer Comments Code Status Discussion: Not Discussed * Full Code Date Activated Date Inactivated Comments 02/14/2017 1:31 AM 02/22/2017 9:33 AM Question Answer Comments Code Status Discussion: Discussed * Full Code Date Activated Date Inactivated Comments 09/29/2016 10:12 AM 09/29/2016 8:14 PM Care Teams Event Staff Relationship Specialty Start Date End Date Luz Jimenez DO [address] [place] [address] PCP - General Family Practice 03/17/13
[2024-09-26] MEDS: HYDROmorphone 0.5 mg/0.5 ml inj IVP ×6 (01:42→23:30)
[2024-09-26] MEDS: 0.9 % SODIUM CHLORIDE 1000 ml 1,000 ML IV (01:42)
[2024-09-26] MEDS: ONDANSETRON 2 MG/ML inj 4 MG IVP (01:42)
[2024-09-26 01:57] LABS: Basophils Percent Auto 0.4 % (0.0-3.0); Eosinophils Percent Auto 1.7 % (0.0-7.0); Hematocrit 45.3 % (37.0-53.0); Immature Granulocytes Pct Auto 0.2 %; Lymphocytes Percent Auto 11.4 % (20-44); Mean Corpuscular HGB Conc 33 gm/dL (32-36); Mean Corpuscular Hemoglobin 30 pg (26-34); Mean Corpuscular Volume 92 fL (80-100); Monocytes Percent Auto 6.1 % (0.0-11.0); Neutrophils Percent Auto 80.2 % (42.0-72.0); Platelet Count* 298 K/uL (140-440); RDW Coefficient of Variation % 13.3 % (11.5-15.5); Red Blood Count 4.94 m/uL (4.30-5.90); Slide Review Reflex No; White Blood Count* 12.58 K/uL (4.50-11.00)
[2024-09-26 02:16] LABS: Albumin* 4.6 g/dL (3.3-5.0); Chloride* 99 mmol/L (96-114); Sodium* 137 mmol/L (135-149)
[2024-09-26 02:17] LABS: Potassium* 4.4 mmol/L (3.6-5.1)
[2024-09-26 02:19] LABS: Alanine Aminotransferase* 40 U/L (4-50); Alkaline Phosphatase* 90 U/L (40-150); Anion Gap 13 mEq/L (7-15); Aspartate Amino Transferase* 40 U/L (12-35); Bilirubin Total* 0.5 mg/dL (0.1-1.5); Blood Urea Nitrogen* 25 mg/dL (7-30); Calcium* 9.6 mg/dL (8.4-10.6); Carbon Dioxide* 25 mmol/L (20-32); Est. Creatinine Clearance* 81.58; Estimated Glomerular Filt Rate 85 ml/min; Glucose* 197 mg/dL (60-115); Lipase* 227 U/L (23-300); Total Protein* 7.6 g/dL (6.0-8.3)
[2024-09-26 03:53] LABS: Lactate* 1.3 mmol/L (0.5-1.9)
[2024-09-26] MEDS: 0.9 % SODIUM CHLORIDE 1000 ml 1,000 ML 150 ML IV (04:00)
[2024-09-26] MEDS: PIPERACILLIN/TAZOBACTAM 3.375 GM in 0.9 % SODIUM CHLORIDE Mini-bag 100 ML IVPB ×2 (04:19→10:41)
[2024-09-26 06:16] LABS: Lactate* 0.6 mmol/L (0.5-1.9)
--- NOTE | 2024-09-26 09:38 | PM.GSCN ---
History of Present Illness Consult details Date Seen: 09/26/24 Consult date: 09/30/24 Narrative: 63-year-old male with BMI of 54 presented to emergency room with periumbilical abdominal pain that started yesterday in the afternoon. Patient had a periumbilical bulge that was noted several months ago. The bulge is not painful and patient was able to reduce it most of the time. However, yesterday he developed periumbilical pain and was not able to reduce his bulge. He had multiple episodes of vomiting. He did not pass gas. Patient's surgical history is remarkable for cholecystectomy, appendectomy, sigmoidectomy with ostomy several years ago (difficult to tell if patient had a colostomy first because he has a left lower quadrant incision or ileostomy because he also has a right lower quadrant incision). Patient then had ostomy takedown. In December of 2021 he had ventral hernia repair with 8 x 12 cm mesh. In April 2022 he presented with incarcerated periumbilical hernia and underwent exploratory laparotomy, small-bowel resection, and closure of midline defect without mesh. Upon patient's workup he was found to have elevated WBC of 12. An abdominal CT was obtained that showed a large ventral defect with possibly another small defect adjacent to the large ventral defect with large intestine and small intestine incarcerated in both defects. The colon was incarcerated through the large defect but the small intestine appeared to be incarcerated through a small defect. His hernia was not able to be reduced in the emergency room. Review of Systems Narrative: General: no fevers HENT: no problems swallowing CV: no shortness of breath Resp: no cough GI: No nausea, vomiting, abdominal pain : no dysuria, no increased urinary frequency, no hematuria Skin: no new rashes Musculoskeletal: no back pain Neuro: no muscle weakness Psyche: no depression, no anxiety PFSH PFSH Medical History (Updated 09/26/24 @ 22:53 by Charmaine Mcdonald MD) Depression ?F32.A - Depression, unspecified (ICD-10) History of open sigmoidectomy ?Z98.890 - Other specified postprocedural states (ICD-10) ?Z90.49 - Acquired absence of other specified parts of digestive tract (ICD-10) Surgical History (Updated 09/26/24 @ 22:54 by Charmaine Mcdonald MD) History of resection of small bowel ?Z90.49 - Acquired absence of other specified parts of digestive tract (ICD-10) S/P exploratory laparotomy ?Z98.890 - Other specified postprocedural states (ICD-10) S/P repair of ventral hernia ?Z98.890 - Other specified postprocedural states (ICD-10) ?Z87.19 - Personal history of other diseases of the digestive system (ICD-10) History of cholecystectomy ?Z90.49 - Acquired absence of other specified parts of digestive tract (ICD-10) History of creation of ostomy ?Z93.9 - Artificial opening status, unspecified (ICD-10) Social History Smoking Status: Never smoker How often do you have a drink containing alcohol: never AUDIT-C Alcohol total score: 0 Non-prescribed substance use: denies use service: No Meds Home Medications and Allergies Home Medications ?Medication ?Instructions ?Recorded ?Confirmed ?Type amlodipine 10 mg tablet 10 mg PO DAILY 05/08/22 05/09/22 History bupropion HCl 300 mg 24 hr tablet, 300 mg PO DAILY 05/08/22 05/09/22 History extended release chlorthalidone 25 mg tablet 25 mg PO DAILY 05/08/22 05/09/22 History lisinopril 40 mg tablet 40 mg PO DAILY 05/08/22 05/09/22 History rosuvastatin 10 mg tablet 10 mg PO HS 05/08/22 05/09/22 History spironolactone 25 mg tablet 12.5 mg PO DAILY 05/08/22 05/09/22 History acetaminophen 500 mg tablet 500 - 1,000 mg PO Q6H PRN 05/09/22 05/09/22 History cholecalciferol (vitamin D3) 25 25 mcg PO DAILY 05/09/22 05/09/22 History mcg (1,000 unit) tablet (Vitamin D3) multivitamin (Multiple Vitamins 1 tab PO DAILY 05/09/22 05/09/22 History tablet) omega-3 fatty acids-fish oil 360 1 cap PO DAILY 05/09/22 05/09/22 History mg-1,200 mg capsule (Fish Oil) sennosides 8.6 mg tablet (Chely-beatriz) 17.2 - 25.8 mg PO DAILY 05/09/22 05/09/22 History escitalopram oxalate 20 mg tablet mg DAILY 09/26/24 History tamsulosin 0.4 mg capsule mg PO DAILY 09/26/24 History Allergies Allergy/AdvReac Type Severity Reaction Status Date / Time No Known Drug Allergies Allergy Verified 05/08/22 18:34 Exam Narrative: Exam Narrative: General appearance: Alert, cooperative, and in no distress Pulmonary: Chest symmetric, lungs clear bilaterally Cardiovascular Heart: Regular rate and rhythm, S1, S2, no murmurs/rubs/gallops Gastrointestinal Abdominal: soft, not distended, Tender to palpation around the umbilicus. There is a periumbilical bulge that is noted on the right side in slightly superior to the umbilicus. No peritoneal signs. With gentle massaging around the umbilicus bilaterally patient had tenderness mostly in the right side but I was not able to tell if the hernia was reduced. barber of Air was heard with attempting to reduce the hernia but patient's pain continued. Skin: Normal skin color, texture, and turgor. No rashes or lesions. Psychiatric: Alert, cooperative, normal affect. Const: Vital Signs, click to edit/add: Vital Signs - 24 hr 09/26/24 01:17 09/26/24 03:55 09/26/24 03:57 Temperature 98.7 F Pulse Rate Pulse Rate [Pulse Oximeter] 94 98 Respiratory Rate 16 16 Blood Pressure [Ri ght Upper Arm] 132/88 Pulse Oximetry 93 86 L 76 L Oxygen Delivery Me thod Room Air Room Air Room Air Oxygen Flow Rate 09/26/24 03:58 09/26/24 04:21 09/26/24 04:27 Temperature 97.3 F L Pulse Rate Pulse Rate [Pulse Oximeter] 98 Respiratory Rate 16 Blood Pressure [Ri ght Upper Arm] 121/72 Pulse Oximetry 90 90 Oxygen Delivery Me thod Nasal Cannula Nasal Cannula Oxygen Flow Rate 3 3 09/26/24 05:00 09/26/24 06:42 09/26/24 06:48 Temperature Pulse Rate Pulse Rate [Pulse Oximeter] 89 Respiratory Rate 16 Blood Pressure [Ri ght Upper Arm] 98/58 L 104/59 L Pulse Oximetry 93 93 Oxygen Delivery Me thod OxyMask Room Air Oxygen Flow Rate 5 09/26/24 06:49 09/26/24 08:30 Temperature 97.6 F Pulse Rate 91 Pulse Rate [Pulse Oximeter] 98 Respiratory Rate 16 22 Blood Pressure [Ri ght Upper Arm] Pulse Oximetry 94 91 Oxygen Delivery Me thod OxyMask OxyMask Oxygen Flow Rate 5 6 Results Labs Labs: Abnormal lab results 09/26/24 Range/Units 01:28 WBC 12.58 H (4.50-11.00) K/uL Neut % (Auto) 80.2 H (42.0-72.0) % Lymph % (Auto) 11.4 L (20-44) % Neut # (Auto) 10.10 H (1.7-7.0) K/uL Glucose 197 H (60-115) mg/dL Lactate 3.0 H (0.5-1.9) mmol/L AST 40 H (12-35) U/L Diabetes panel 09/26/24 Range/Units 01:28 Sodium 137 (135-149) mmol/L Potassium 4.4 (3.6-5.1) mmol/L Chloride 99 (96-114) mmol/L Carbon Dioxide 25 (20-32) mmol/L BUN 25 (7-30) mg/dL Creatinine 1.0 (0.5-1.5) mg/dL Glucose 197 H (60-115) mg/dL Calcium 9.6 (8.4-10.6) mg/dL AST 40 H (12-35) U/L ALT 40 (4-50) U/L Alkaline Phosphatase 90 (40-150) U/L Total Protein 7.6 (6.0-8.3) g/dL Albumin 4.6 (3.3-5.0) g/dL Calcium panel 09/26/24 Range/Units 01:28 Calcium 9.6 (8.4-10.6) mg/dL Albumin 4.6 (3.3-5.0) g/dL Pituitary panel 09/26/24 Range/Units 01:28 Sodium 137 (135-149) mmol/L Potassium 4.4 (3.6-5.1) mmol/L Chloride 99 (96-114) mmol/L Carbon Dioxide 25 (20-32) mmol/L BUN 25 (7-30) mg/dL Creatinine 1.0 (0.5-1.5) mg/dL Glucose 197 H (60-115) mg/dL Calcium 9.6 (8.4-10.6) mg/dL Adrenal panel 09/26/24 Range/Units 01:28 Sodium 137 (135-149) mmol/L Potassium 4.4 (3.6-5.1) mmol/L Chloride 99 (96-114) mmol/L Carbon Dioxide 25 (20-32) mmol/L BUN 25 (7-30) mg/dL Creatinine 1.0 (0.5-1.5) mg/dL Glucose 197 H (60-115) mg/dL Calcium 9.6 (8.4-10.6) mg/dL Total Bilirubin 0.5 (0.1-1.5) mg/dL AST 40 H (12-35) U/L ALT 40 (4-50) U/L Alkaline Phosphatase 90 (40-150) U/L Total Protein 7.6 (6.0-8.3) g/dL Albumin 4.6 (3.3-5.0) g/dL All other labs normal. Progress Note:A&P Assessment and plan (1) Incarcerated ventral hernia: Status: Acute Assessment and Plan: 63-year-old male with multiple previous surgeries and BMI 54 presents with incarcerated ventral hernia with small-bowel obstruction. I previously discussed with the ER physician that given the complexity of this patient's medical and surgical problems, the best way to address his incarcerated hernia would be with abdominal wall reconstruction and most likely placement of Phasix mesh. We do not have large pieces of mesh at this hospital. We attempted to transfer this patient to a tertiary center but unfortunately there are no beds available. I discussed with the patient that if are not able to find a surgical bed, we will proceed with surgery at [facility]. I discussed with the patient the risks associated with his surgery including infection, bleeding, intra-abdominal organ injury, possible need for small bowel obstruction, cardiopulmonary complications, and hernia recurrence were all discussed with the patient, and he agreed to proceed.
--- NOTE | 2024-09-26 11:22 | W.PM.NB ---
Nerve Block Nerve Block Time Seen by Provider: 11:40 Date Seen: 09/26/24 Type of block requested by surgeon for post-operative analgesia: TAP Side: bilateral Time out performed: Yes Verification of patient name: Yes Verification of date of : Yes Site marking: site marked Name of person performing procedure: Rasheed Continuous monitoring Was continuous monitoring of O2 sat, B/P, color television console monitor, recorded every 15 minutes?: Yes Procedure Checklist: sterile prep, needles and gloves Ultrasound guided. Images saved: Yes Medications given in 5ml increments after negative aspiration: Marcaine %: 0.25 mL: 30 Needle gauge: 20 and Exparel mL: 10 Patient tolerated procedure well: Yes Additional comments: Needle noted between internal oblique and transversus abdominus. Local spread visualized Block Charges Block Charge (with Pro Fee): TAP Bilateral Use of Ultrasound Machine for Block: Yes- US Guidance/pain block
--- NOTE | 2024-09-26 11:22 | W.ANESCHARGE ---
Anesthesia Charges Start Date/Time Anesthesia Start Date: 09/26/24 Anesthesia Start Time: 11:28 Stop Date/Time Anesthesia Stop Date: 09/26/24 Anesthesia Stop Time: 15:59 Summary Emergency: [facility] Coding CPT Codes CPT Codes: ANESTH SURG UPPER ABDOMEN - 70524 ([id number]) P3 - PATIENT W/SEVERE SYS DISEASE, QK - TANK CREWMEMBER 2-4 CNCRNT ANES PROC, QX - MAINTENANCE SERVICE TECHNICIAN SVC W/ MD MED DIRECTION Additional Codes: Summary - Emergency: [facility] ([id number])
[2024-09-26] MEDS: CEFAZOLIN 1 GM inj 3 GM IVP (11:39)
[2024-09-26] MEDS: LACTATED RINGERS 1000 ML 1,000 ML 125 ML IV (15:26)
--- NOTE | 2024-09-26 15:56 | PM.GSPRC ---
Operative Note Date of procedure: 09/26/24 Pre-op diagnosis: 1. Incarcerated recurrent ventral hernia. 2. BMI of 54. Post-op diagnosis: Same Type of Procedure: 1. Open recurrent ventral hernia repair with Phasix mesh 15 x 20 cm. Indications: 63-year-old male with BMI of 54 and multiple abdominal surgeries presented to emergency room with abdominal pain that started yesterday. The pain was persistent and patient was vomiting. Upon his workup he was found to have incarcerated ventral hernia containing small bowel with transition point in his ventral hernia. Patient also had large intestine incarcerated in the ventral hernia defect. Multiple attempts were made in the emergency room to reduce the hernia but were not successful. Given patient's complex surgical history and his BMI, we attempted to transfer the patient to a tertiary center but were not successful due to no bed availability. Given the potential dire nature of his incarcerated and possible strangulated hernia, patient was offered open ventral hernia repair at [facility]. The procedure was discussed in detail. The risks associated procedure including infection, bleeding, hernia recurrence, cardiopulmonary complications, and the need for potential other procedures were all discussed with the patient, and he agreed to proceed. Procedure Description: After discussing the risks and benefits of the procedure, the patient signed informed consent.? The operative site was marked and the patient was brought to the operating room and placed on the operating table in supine position.? Care was taken to pad the patient's pressure points.?? The patient was then intubated by anesthesia.?? The operative site was then prepped and draped in the usual sterile fashion.? A time-out was then performed. The skin incision was made superior to the umbilicus with a scalpel through previously well-healed surgical incision. Subcutaneous fat was divided with cautery. Anterior fascia was identified and divided with Metzenbaum scissors. Scar tissue was noted and it was difficult to tell if small large intestine was protruding through the fascial defect. This dissection was taken slowly and carefully to finally enter the abdomen. When the abdomen was entered omentum and small intestine were incarcerated near the umbilicus. This was carefully dissected from the hernia sac and reduced from subcutaneous space through the fascial defect. The small intestine was then examined and was viable. A small serosal tear was oversewn with 3-0 silk suture. At least 3 hernia sacs were noted with the largest 1 located right superiorly. The hernia sacs were excised with cautery and discarded. I then proceeded with developing retrorectus space. This was done with cautery. On the left side where patient had previous repair of left lower quadrant incisional hernia with mesh, I encountered significantly more scar tissue. The previously placed left lower quadrant mesh was palpable but I did not enter the space around the mesh. Retrorectus space was developed on the right and on the left and the 2 cavities were connected superiorly and inferiorly by dividing the linea Alba. The posterior sheath was then reapproximated with multiple interrupted 0-0 Vicryl sutures to close the abdomen. Mild tension was noted on this closure. The fascial defect was approximately 14 cm in the craniocaudal dimension. I then used 15 x 20 cm Phasix mesh with no Seprafilm and placed it into the retrorectus space. This was secured in place to the posterior fascia with multiple interrupted Vicryl sutures. Subcutaneous skin flaps were then developed with cautery to allow more anterior fascial mobility. Subcutaneous drain was placed over the mesh through a right inferior abdominal skin incision. The drain was secured in place with nylon suture. Anterior fascia was then reapproximated over the mesh with interrupted [id number] 0-0 Vicryl and 0-0 PDS sutures. Hemostasis achieved with cautery and Vicryl ties throughout the case. A subcutaneous space drain was then placed over the closed anterior fascia through the separate left lower quadrant skin incision. This was secured in place with nylon suture. Umbilicus was tacked down to subcutaneous fat. Subcutaneous fat was reapproximated with Vicryl sutures. The skin was closed with mariposa. Sterile dressings were placed over the incisions and around the drains. ? The patient was then woken and transported to the recovery area in stable condition. ? The patient tolerated the procedure well. Findings: Multiple fascial defects, combined into a common defect and repaired with retrorectus Phasix mesh. 2 drains placed, right inferior drain over the mesh, left inferior drain in subcutaneous space over the closed anterior fascia. Anesthesia: GETA Surgeon: Orville Peña MD Estimated blood loss (mL): 50 Condition: stable Disposition: PACU
--- NOTE | 2024-09-26 16:14 | W.ANESCHARGE ---
Anesthesia Charges Start Date/Time Anesthesia Start Date: 09/26/24 Anesthesia Start Time: 11:28 Stop Date/Time Anesthesia Stop Date: 09/26/24 Anesthesia Stop Time: 15:59 Summary Emergency: [employer] Coding CPT Codes CPT Codes: ANESTH SURG UPPER ABDOMEN - 51498 ([id number]) P3 - PATIENT W/SEVERE SYS DISEASE, QX - [employer] SVC W/ MD MED DIRECTION, QK - MEDICAL TECHNOLOGIST CLINICAL 2-4 CNCRNT ANES PROC Additional Codes: Summary - Emergency: [employer] ([id number])
[2024-09-26 17:24] LABS: Base Excess ABG -2.2 mmol/L (-3.0-3.0); HCO3 ABG 27 mmol/L (21-28); Oxygen Saturation ABG 89 % (92-100); TCO2 ABG 25 mmol/l (21-30)
[2024-09-26 17:27] LABS: pH ABG 7.23 (7.35-7.45)
[2024-09-26 17:28] LABS: ABG PCO2 63 mmHG (35-45)
[2024-09-26] MEDS: CEFAZOLIN 2 GM in 0.9 % SODIUM CHLORIDE Mini-bag 100 ML IVPB (18:19)
[2024-09-26] MEDS: LACTATED RINGERS 1000 ML 1,000 ML 75 ML IV (18:20)
--- NOTE | 2024-09-26 18:54 | PM.IMCN1 ---
Date of Consult Consult date: 09/26/24 Primary Care Provider: Luz Jimenez, DO Consult Narrative Narrative: Gomez Guzman is a 63 year old male with past medical history of hypertension, hyperlipidemia, morbid obesity, diabetes, history of tobacco use and history of sigmoid abscess that needed ex lap and small-bowel resection with anastomosis in 2021 who presents to the ED with incarcerated hernia and was sent to OR emergently. Patient was hypoxic at rest before surgery, his O2 sat was at mid 80s. Patient denies history of COPD or using inhalers at home. He denies chronic cough. He said that he was never tested for obstructive sleep apnea. After recovery from surgery today, patient was noticed to be hypoxic at 88-89% on oxygen tent when he doses off, but while he is fully awake he sets lower 90s % on oxygen tent (6-8 liters/minute, 40%). Before admission, [email or web address] tried to transfer the patient to another facility due to his comorbidities and respiratory failure but no beds available. I ordered ABGs and chest x-ray while patient was at recovery and his pH was mildly acidotic at 7.23, pCO2 showing hypercapnia at 63 and he was hypoxic with PO2 at 60. Review of Systems Status of ROS: Reports: 6 or more systems reviewed and unremarkable except as noted in History and below [facility] Medical History (Updated 09/26/24 @ 19:19 by Charmaine Mcdonald MD) Depression ?F32.A - Depression, unspecified (ICD-10) History of open sigmoidectomy ?Z98.890 - Other specified postprocedural states (ICD-10) ?Z90.49 - Acquired absence of other specified parts of digestive tract (ICD-10) Surgical History (Updated 09/26/24 @ 19:15 by Charmaine Mcdonald MD) History of resection of small bowel ?Z90.49 - Acquired absence of other specified parts of digestive tract (ICD-10) S/P exploratory laparotomy ?Z98.890 - Other specified postprocedural states (ICD-10) S/P repair of ventral hernia ?Z98.890 - Other specified postprocedural states (ICD-10) ?Z87.19 - Personal history of other diseases of the digestive system (ICD-10) History of cholecystectomy ?Z90.49 - Acquired absence of other specified parts of digestive tract (ICD-10) History of creation of ostomy ?Z93.9 - Artificial opening status, unspecified (ICD-10) Social History Smoking Status: Never smoker How often do you have a drink containing alcohol: never AUDIT-C Alcohol total score: 0 Non-prescribed substance use: denies use service: No Meds Home Medications and Allergies Home Medications ?Medication ?Instructions ?Recorded ?Confirmed ?Type amlodipine 10 mg tablet 10 mg PO DAILY 05/08/22 05/09/22 History bupropion HCl 300 mg 24 hr tablet, 300 mg PO DAILY 05/08/22 05/09/22 History extended release chlorthalidone 25 mg tablet 25 mg PO DAILY 05/08/22 05/09/22 History lisinopril 40 mg tablet 40 mg PO DAILY 05/08/22 05/09/22 History rosuvastatin 10 mg tablet 10 mg PO HS 05/08/22 05/09/22 History spironolactone 25 mg tablet 12.5 mg PO DAILY 05/08/22 05/09/22 History acetaminophen 500 mg tablet 500 - 1,000 mg PO Q6H PRN 05/09/22 05/09/22 History cholecalciferol (vitamin D3) 25 25 mcg PO DAILY 05/09/22 05/09/22 History mcg (1,000 unit) tablet (Vitamin D3) multivitamin (Multiple Vitamins 1 tab PO DAILY 05/09/22 05/09/22 History tablet) omega-3 fatty acids-fish oil 360 1 cap PO DAILY 05/09/22 05/09/22 History mg-1,200 mg capsule (Fish Oil) sennosides 8.6 mg tablet (Chely-beatriz) 17.2 - 25.8 mg PO DAILY 05/09/22 05/09/22 History escitalopram oxalate 20 mg tablet mg DAILY 09/26/24 History tamsulosin 0.4 mg capsule mg PO DAILY 09/26/24 History Allergies Allergy/AdvReac Type Severity Reaction Status Date / Time No Known Drug Allergies Allergy Verified 05/08/22 18:34 Exam Narrative: Exam Narrative: Physical exam GENERAL: Comfortable, no acute distress. HEAD AND NECK: Atraumatic, normocephalic CARDIOVASCULAR: RRR. Normal S1, S2. No murmurs. RESPIRATORY: Clear to auscultation B/L. Good air entry B/L. No wheezes or rhonchi. GASTROINTESTINAL: Not distended, not tender to palpation. NEUROLOGY: Alert, awake, oriented X 3. Normal speech. No focal weakness. PSYCH: Normal mood, normal affect. Const: Vital Signs, click to edit/add: Vital Signs - 24 hr 09/26/24 01:17 09/26/24 03:55 09/26/24 03:57 Temperature 98.7 F Pulse Rate Pulse Rate [Pulse Oximeter] 94 98 Respiratory Rate 16 16 Blood Pressure Blood Pressure [Ri ght Upper Arm] 132/88 Pulse Oximetry 93 86 L 76 L Oxygen Delivery Me thod Room Air Room Air Room Air Oxygen Flow Rate Fraction of Inspir ed Oxygen 09/26/24 03:58 09/26/24 04:21 09/26/24 04:27 Temperature 97.3 F L Pulse Rate Pulse Rate [Pulse Oximeter] 98 Respiratory Rate 16 Blood Pressure Blood Pressure [Ri ght Upper Arm] 121/72 Pulse Oximetry 90 90 Oxygen Delivery Me thod Nasal Cannula Nasal Cannula Oxygen Flow Rate 3 3 Fraction of Inspir ed Oxygen 09/26/24 05:00 09/26/24 06:42 09/26/24 06:48 Temperature Pulse Rate Pulse Rate [Pulse Oximeter] 89 Respiratory Rate 16 Blood Pressure Blood Pressure [Ri ght Upper Arm] 98/58 L 104/59 L Pulse Oximetry 93 93 Oxygen Delivery Me thod OxyMask Room Air Oxygen Flow Rate 5 Fraction of Inspir ed Oxygen 09/26/24 06:49 09/26/24 08:00 09/26/24 08:30 Temperature 97.6 F Pulse Rate 91 Pulse Rate [Pulse Oximeter] 98 Respiratory Rate 16 22 Blood Pressure Blood Pressure [Ri ght Upper Arm] Pulse Oximetry 94 91 91 Oxygen Delivery Me thod OxyMask OxyMask Oxygen Flow Rate 5 6 Fraction of Inspir ed Oxygen 09/26/24 09:00 09/26/24 09:30 09/26/24 10:00 Temperature Pulse Rate 93 95 102 H Pulse Rate [Pulse Oximeter] Respiratory Rate 15 24 24 Blood Pressure Blood Pressure [Ri ght Upper Arm] Pulse Oximetry 91 92 91 Oxygen Delivery Me thod Oxygen Flow Rate Fraction of Inspir ed Oxygen 09/26/24 11:00 09/26/24 11:15 09/26/24 16:00 Temperature 98.2 F Pulse Rate 89 108 H 101 H Pulse Rate [Pulse Oximeter] Respiratory Rate 22 22 15 Blood Pressure 99/72 117/66 Blood Pressure [Ri ght Upper Arm] Pulse Oximetry 92 95 94 Oxygen Delivery Me thod OxyMask OxyMask Oxygen Flow Rate 6 Fraction of Inspir ed Oxygen 100 09/26/24 16:05 09/26/24 16:10 09/26/24 16:15 Temperature Pulse Rate 108 H 108 H 108 H Pulse Rate [Pulse Oximeter] Respiratory Rate 16 16 17 Blood Pressure 131/71 138/72 118/73 Blood Pressure [Ri ght Upper Arm] Pulse Oximetry 95 94 95 Oxygen Delivery Me thod OxyMask OxyMask OxyMask Oxygen Flow Rate 10 10 10 Fraction of Inspir ed Oxygen 100 100 100 09/26/24 16:20 09/26/24 16:25 09/26/24 16:30 Temperature Pulse Rate 108 H 106 H 106 H Pulse Rate [Pulse Oximeter] Respiratory Rate 15 15 12 Blood Pressure 126/65 111/58 L 101/60 Blood Pressure [Ri ght Upper Arm] Pulse Oximetry 93 94 93 Oxygen Delivery Me thod OxyMask OxyMask OxyMask Oxygen Flow Rate 10 10 10 Fraction of Inspir ed Oxygen 100 100 100 09/26/24 16:35 09/26/24 16:40 09/26/24 16:45 Temperature Pulse Rate 105 H 104 H 107 H Pulse Rate [Pulse Oximeter] Respiratory Rate 13 13 14 Blood Pressure 101/59 L 111/62 97/75 Blood Pressure [Ri ght Upper Arm] Pulse Oximetry 93 91 95 Oxygen Delivery Me thod Face Tent Face Tent OxyMask Oxygen Flow Rate 10 10 8 Fraction of Inspir ed Oxygen 50 50 50 09/26/24 16:50 09/26/24 16:55 09/26/24 17:00 Temperature 98.3 F Pulse Rate 105 H 104 H 105 H Pulse Rate [Pulse Oximeter] Respiratory Rate 15 12 15 Blood Pressure 106/61 118/62 124/82 Blood Pressure [Ri ght Upper Arm] Pulse Oximetry 92 92 91 Oxygen Delivery Me thod OxyMask OxyMask OxyMask Oxygen Flow Rate 6 6 6 Fraction of Inspir ed Oxygen 50 50 50 09/26/24 18:31 Temperature Pulse Rate Pulse Rate [Pulse Oximeter] Respiratory Rate Blood Pressure Blood Pressure [Ri ght Upper Arm] Pulse Oximetry 87 L Oxygen Delivery Me thod Oxygen Flow Rate Fraction of Inspir ed Oxygen Labs Labs: Short CBC 09/26/24 Range/Units 01:28 WBC 12.58 H (4.50-11.00) K/uL Hgb 15.0 (13.5-17.5) gm/dL Hct 45.3 (37.0-53.0) % Plt Count 298 (140-440) K/uL BMP 09/26/24 01:28 Sodium 137 Potassium 4.4 Chloride 99 Carbon Dioxide 25 BUN 25 Creatinine 1.0 Glucose 197 H Calcium 9.6 Liver Function 09/26/24 Range/Units 01:28 Total Bilirubin 0.5 (0.1-1.5) mg/dL AST 40 H (12-35) U/L ALT 40 (4-50) U/L Alkaline Phosphatase 90 (40-150) U/L Albumin 4.6 (3.3-5.0) g/dL ECG Attestation: I personally reviewed and interpreted this ECG as follows: Interpretation: Normal sinus rhythm QTC normal Imaging CT scan - abdomen: Radiologist's impression: INDICATION: Abdominal pain and nausea. TECHNIQUE: CT abdomen and pelvis acquired with 150 cc Omnipaque 370 IV contrast. COMPARISON: CT abdomen and pelvis 05/08/2022. FINDINGS: Lower chest: Unremarkable. Liver: Unremarkable. Gallbladder and bile ducts: Cholecystectomy with stable mild prominence of the intrahepatic biliary ducts. Pancreas: Unremarkable. Spleen: Unremarkable. Adrenal glands: Unremarkable. Kidneys: Bilateral renal cysts. No suspicious renal lesion. No hydronephrosis or hydroureter. No urinary calculi. GI tract/abdominal wall: A pair of ventral abdominal wall hernia defects are noted, both containing bowel. Multiple loops of dilated fluid-filled small bowel measuring up to 4.5 cm are identified with probable transition point noted within the inferior of the 2 ventral abdominal wall hernia defects. Obstructed bowel loops are also noted entering the superior most hernia defect along with unobstructed colonic loops. Vasculature: No abdominal aortic aneurysm. Grossly patent vasculature. Lymph nodes: No suspicious lymphadenopathy. Peritoneum: No ascites or pneumoperitoneum. Pelvis: Normal bladder. Unremarkable prostate and seminal vesicles. Bones: No acute abnormality. IMPRESSION: Small-bowel obstruction with probable transition point noted within the inferior of 2 adjacent ventral abdominal wall hernia defects, although obstructed loops of small bowel also course within the superior ventral abdominal wall hernia defect along with unobstructed colon. Please note that all CT scans at this facility use dose modulation, iterative reconstruction, and/or weight-based dosing when appropriate to reduce radiation dose to as low as reasonably achievable. Dictated by Luisito Rosenthal MD @ 09/26/2024 2:58:07 AM Chest x-ray: Attestation: I have reviewed the pertinent imaging results. Radiologist's impression: TECHNIQUE: Chest radiograph, 1 view. COMPARISON: None. FINDINGS: Cardiovascular/Mediastinum: Magnified heart size. Unremarkable. Lungs: No focal consolidation. Linear band like opacification of the lungs bilaterally, likely subsegmental atelectasis and/or scarring. Airways: Trachea remains midline. Pleura: No pleural effusions or pneumothorax. Bones: No acute osseous abnormalities. Upper abdomen: Unremarkable. IMPRESSION: No acute cardiopulmonary process. Dictated by Jarad Green MD @ 09/26/2024 5:29:13 PM Assessment and Plan Assessment and plan (1) Acute on chronic respiratory failure with hypercapnia: Status: Acute (2) Incarcerated ventral hernia: Status: Acute (3) S/P exploratory laparotomy: Problem comment: with small bowel resection for incarcerated umbilical hernia Status: Acute (4) Morbid obesity: Status: Acute (5) Obstructive sleep apnea: Status: Suspected (6) Diabetes: Status: Acute (7) HTN (hypertension): Status: Acute (8) History of resection of small bowel: Status: Acute (9) Depression: Status: Acute Total Time Spent Total Time Spent: Time spent: Today I spent 75 minutes seeing the patient, discussing the patient with ER staff, reviewing [facility] and EPIC notes/diagnostics, discussing the care plan with our care time that includes social work, PT/OT, pharmacy, RT, usp and documenting my impressions and plan in the medical record.
--- NOTE | 2024-09-26 19:50 | PC.NURSE ---
End of shift-- Pt arrived from PACU at approximately 1730. Alert and oriented, but drowsy. VSS and highet temp this shift 99.5F. SPO2 84-93% on 6-7L O2 via aerosol mask with 40% FiO2. Pt's oxygen saturation drops whenever pt falls asleep. Pt c/o pain which he rated as high as 8 out of 10 and was given Dilaudid once with partial relief. LS CTA. Telemetry shows sinus tachycardia. Dressing to midline of abdomen is C/D/I. NAVID drains bilaterally draining small amounts of bloody drainage. See EMR for details. Akbar is patent and drained 200ml of clear, yellow urine this shift. Report to JOIE Reis.
[2024-09-26 20:23] LABS: Base Excess ABG -2.1 mmol/L (-3.0-3.0); HCO3 ABG 27 mmol/L (21-28); Oxygen Saturation ABG 63 % (92-100); TCO2 ABG 26 mmol/l (21-30)
[2024-09-26 20:28] LABS: ABG PCO2 66 mmHG (35-45); PO2 ABG 37.1 mmHG (80-105); pH ABG 7.22 (7.35-7.45)
[2024-09-26 22:11] LABS: Base Excess ABG -2.5 mmol/L (-3.0-3.0); HCO3 ABG 27 mmol/L (21-28); Oxygen Saturation ABG 95 % (92-100); PO2 ABG 80.5 mmHG (80-105); TCO2 ABG 26 mmol/l (21-30)
[2024-09-26 22:14] LABS: ABG PCO2 69 mmHG (35-45)
[2024-09-26] MEDS: ACETAMINOPHEN INJ 1,000 MG/100 ML VIAL 400 MG IVPB (22:40)
--- NOTE | 2024-09-26 22:55 | PM.DS1 ---
DS: Providers Provider Date Seen: 09/26/24 Date of admission: 09/26/24 17:31 Primary care physician: Luz Jimenez DO Admitting Clinician: Orville Peña MD Consults: 09/26/24 17:31 Consult to Physical Therapy [CONS] Urgent Comment: Reason(s) for PT Consult:: Evaluate Ambulation Any Restrictions?:: See Comment Comment: no heavy lifting 09/26/24 17:32 Consult to Physician [CONS] Routine Comment: Consulting Provider: Hospitalists Has provider been notified: Yes Attending Physician on discharge: Charmaine Mcdonald MD DS: Diagnosis Discharge Diagnosis (1) Acute respiratory failure with hypercapnia: Status: Acute Problem details: -Patient was hypoxic at rest before surgery, his O2 sat was at mid 80s. -Patient denies history of COPD or using inhalers at home. He denies chronic cough. He said that he was never tested for obstructive sleep apnea. -After recovery from surgery today, patient was noticed to be hypoxic at 88-89% on oxygen tent, ABGs : pH was mildly acidotic at 7.23, pCO2 showing hypercapnia at 63 and he was hypoxic with PO2 at 60. -patient was put on BiPAP and 30 minutes after that his ABGs are showing pH of 7.22, pCO2 of 69, PO2 improved. -patient needs a higher level of care we contacted [facility] and they accepted him. Accepting communications agent is Dr. Child. (2) Incarcerated ventral hernia: Status: Acute Problem details: -patient has history of prior abdominal surgeries including small bowel resection in 2021 for sigmoid abscess. -status post open repair of his hernia with mesh on September 26. (3) S/P exploratory laparotomy: Status: Acute Problem details: with small bowel resection for incarcerated umbilical hernia (4) Morbid obesity: Status: Acute Problem details: BMI 54.4 (5) Obstructive sleep apnea: Status: Suspected Problem details: Patient did not have a sleep test before We suspect either ISAIAH or obesity hypoventilation syndrome (6) Diabetes: Status: Acute Problem details: Recent diagnosis (7) HTN (hypertension): Status: Acute Problem details: Patient is on 4 medications for blood pressure at home including amlodipine, chlorthalidone, lisinopril and spironolactone Hold these medications currently as his blood pressure is normal (8) History of resection of small bowel: Status: Acute Problem details: Back in 2021 History of sigmoid abscess (9) Depression: Status: Acute DS: Summary Hospital Course Hospital Course: Gomez Guzman is a 63 year old male with past medical history of hypertension, hyperlipidemia, morbid obesity, diabetes, history of tobacco use and history of sigmoid abscess that needed ex lap and small-bowel resection with anastomosis in 2021 who presents to the ED with incarcerated hernia and was sent to OR emergently. Patient was hypoxic at rest before surgery, his O2 sat was at mid 80s. Patient denies history of COPD or using inhalers at home. He denies chronic cough. He said that he was never tested for obstructive sleep apnea. After recovery from surgery today, patient was noticed to be hypoxic at 88-89% on oxygen tent when he doses off, but while he is fully awake he sets lower 90s % on oxygen tent (6-8 liters/minute, 40%). Before admission, jte tried to transfer the patient to another facility due to his comorbidities and respiratory failure but no beds available. I ordered ABGs and chest x-ray while patient was at recovery and his pH was mildly acidotic at 7.23, pCO2 showing hypercapnia at 63 and he was hypoxic with PO2 at 60. Patient was put on BiPAP, but he was still hypercapnic after that and with increased work of breathing, we contacted [facility] and they accepted the patient for transfer. Status at Discharge Overall status at discharge: patient is not back to baseline Time Spent with Patient Time attestation: Total time spent providing and/or coordinating discharge services: 75 min Exam Narrative: Exam Narrative: Physical exam GENERAL: Morbidly obese, increased work of breathing on BiPAP HEAD AND NECK: Atraumatic, normocephalic CARDIOVASCULAR: Tachycardia regular, Normal S1, S2. No murmurs. RESPIRATORY: Clear to auscultation B/L. No wheezes or rhonchi. On BiPAP GASTROINTESTINAL: Clean dressing, tender to palpation. abdominal drain. NEUROLOGY: Alert, awake, oriented X 3. Normal speech. PSYCH: Normal mood, normal affect. Const: Vital Signs, click to edit/add: Vital Signs - 24 hr 09/26/24 01:17 09/26/24 03:55 09/26/24 03:57 Temperature 98.7 F Pulse Rate Pulse Rate [Pulse Oximeter] 94 98 Respiratory Rate 16 16 Blood Pressure Blood Pressure [Ri ght Upper Arm] 132/88 Pulse Oximetry 93 86 L 76 L Oxygen Delivery Me thod Room Air Room Air Room Air Oxygen Flow Rate Fraction of Inspir ed Oxygen 09/26/24 03:58 09/26/24 04:21 09/26/24 04:27 Temperature 97.3 F L Pulse Rate Pulse Rate [Pulse Oximeter] 98 Respiratory Rate 16 Blood Pressure Blood Pressure [Ri ght Upper Arm] 121/72 Pulse Oximetry 90 90 Oxygen Delivery Me thod Nasal Cannula Nasal Cannula Oxygen Flow Rate 3 3 Fraction of Inspir ed Oxygen 09/26/24 05:00 09/26/24 06:42 09/26/24 06:48 Temperature Pulse Rate Pulse Rate [Pulse Oximeter] 89 Respiratory Rate 16 Blood Pressure Blood Pressure [Ri ght Upper Arm] 98/58 L 104/59 L Pulse Oximetry 93 93 Oxygen Delivery Me thod OxyMask Room Air Oxygen Flow Rate 5 Fraction of Inspir ed Oxygen 09/26/24 06:49 09/26/24 08:00 09/26/24 08:30 Temperature 97.6 F Pulse Rate 91 Pulse Rate [Pulse Oximeter] 98 Respiratory Rate 16 22 Blood Pressure Blood Pressure [Ri ght Upper Arm] Pulse Oximetry 94 91 91 Oxygen Delivery Me thod OxyMask OxyMask Oxygen Flow Rate 5 6 Fraction of Inspir ed Oxygen 09/26/24 09:00 09/26/24 09:30 09/26/24 10:00 Temperature Pulse Rate 93 95 102 H Pulse Rate [Pulse Oximeter] Respiratory Rate 15 24 24 Blood Pressure Blood Pressure [Ri ght Upper Arm] Pulse Oximetry 91 92 91 Oxygen Delivery Me thod Oxygen Flow Rate Fraction of Inspir ed Oxygen 09/26/24 11:00 09/26/24 11:15 09/26/24 16:00 Temperature 98.2 F Pulse Rate 89 108 H 101 H Pulse Rate [Pulse Oximeter] Respiratory Rate 22 22 15 Blood Pressure 99/72 117/66 Blood Pressure [Ri ght Upper Arm] Pulse Oximetry 92 95 94 Oxygen Delivery Me thod OxyMask OxyMask Oxygen Flow Rate 6 Fraction of Inspir ed Oxygen 100 09/26/24 16:05 09/26/24 16:10 09/26/24 16:15 Temperature Pulse Rate 108 H 108 H 108 H Pulse Rate [Pulse Oximeter] Respiratory Rate 16 16 17 Blood Pressure 131/71 138/72 118/73 Blood Pressure [Ri ght Upper Arm] Pulse Oximetry 95 94 95 Oxygen Delivery Me thod OxyMask OxyMask OxyMask Oxygen Flow Rate 10 10 10 Fraction of Inspir ed Oxygen 100 100 100 09/26/24 16:20 09/26/24 16:25 09/26/24 16:30 Temperature Pulse Rate 108 H 106 H 106 H Pulse Rate [Pulse Oximeter] Respiratory Rate 15 15 12 Blood Pressure 126/65 111/58 L 101/60 Blood Pressure [Ri ght Upper Arm] Pulse Oximetry 93 94 93 Oxygen Delivery Me thod OxyMask OxyMask OxyMask Oxygen Flow Rate 10 10 10 Fraction of Inspir ed Oxygen 100 100 100 09/26/24 16:35 09/26/24 16:40 09/26/24 16:45 Temperature Pulse Rate 105 H 104 H 107 H Pulse Rate [Pulse Oximeter] Respiratory Rate 13 13 14 Blood Pressure 101/59 L 111/62 97/75 Blood Pressure [Ri ght Upper Arm] Pulse Oximetry 93 91 95 Oxygen Delivery Me thod Face Tent Face Tent OxyMask Oxygen Flow Rate 10 10 8 Fraction of Inspir ed Oxygen 50 50 50 09/26/24 16:50 09/26/24 16:55 09/26/24 17:00 Temperature 98.3 F Pulse Rate 105 H 104 H 105 H Pulse Rate [Pulse Oximeter] Respiratory Rate 15 12 15 Blood Pressure 106/61 118/62 124/82 Blood Pressure [Ri ght Upper Arm] Pulse Oximetry 92 92 91 Oxygen Delivery Me thod OxyMask OxyMask OxyMask Oxygen Flow Rate 6 6 6 Fraction of Inspir ed Oxygen 50 50 50 09/26/24 17:30 09/26/24 17:50 09/26/24 18:00 Temperature 98.8 F 99.2 F Pulse Rate 108 H 114 H 112 H Pulse Rate [Pulse Oximeter] Respiratory Rate 16 16 Blood Pressure 115/74 121/65 Blood Pressure [Ri ght Upper Arm] Pulse Oximetry 93 90 Oxygen Delivery Me thod Aerosol Mask Aerosol Mask Oxygen Flow Rate 6 7 Fraction of Inspir ed Oxygen 40 40 09/26/24 18:15 09/26/24 18:30 09/26/24 18:31 Temperature 99.5 F Pulse Rate 109 H 112 H Pulse Rate [Pulse Oximeter] Respiratory Rate 16 16 Blood Pressure 121/65 119/77 Blood Pressure [Ri ght Upper Arm] Pulse Oximetry 88 87 L 87 L Oxygen Delivery Me thod Aerosol Mask Aerosol Mask Oxygen Flow Rate 6 6 Fraction of Inspir ed Oxygen 40 40 09/26/24 18:45 Temperature 99.5 F Pulse Rate 112 H Pulse Rate [Pulse Oximeter] Respiratory Rate 16 Blood Pressure 115/72 Blood Pressure [Ri ght Upper Arm] Pulse Oximetry 89 Oxygen Delivery Me thod Aerosol Mask Oxygen Flow Rate 6 Fraction of Inspir ed Oxygen 40 DS: Data Data Completed and Pending Completed studies during hospitalization: Procedures Resection of Small Intestine, Open Approach (05/09/22) Labs on day of discharge: Labs from last 24 hours 09/26/24 09/26/24 09/26/24 20:20 20:05 17:15 WBC RBC Hgb Hct MCV MCH MCHC RDW Coeff of Greg Plt Count Neut % (Auto) Lymph % (Auto) Riley % (Auto) Eos % (Auto) Baso % (Auto) Neut # (Auto) Lymph # (Auto) Riley # (Auto) Eos # (Auto) Baso # (Auto) Abs Immat Gran (auto) Imm/Tot Granulo (auto) ABG pH 7.22 L* 7.20 L* 7.23 L* ABG pCO2 66 H* 69 H* 63 H* ABG pO2 37.1 L* 80.5 60.0 L ABG HCO3 27 27 27 ABG Total CO2 26 26 25 ABG O2 Saturation 63 L 95 89 L ABG Base Excess -2.1 -2.5 -2.2 Sodium Potassium Chloride Carbon Dioxide Anion Gap BUN Creatinine Estimated Creat Clear Estimated GFR Glucose Lactate Calcium Total Bilirubin AST ALT Alkaline Phosphatase Total Protein Albumin Lipase 09/26/24 09/26/24 09/26/24 06:14 03:45 01:28 WBC 12.58 H RBC 4.94 Hgb 15.0 Hct 45.3 MCV 92 MCH 30 MCHC 33 RDW Coeff of Greg 13.3 Plt Count 298 Neut % (Auto) 80.2 H Lymph % (Auto) 11.4 L Riley % (Auto) 6.1 Eos % (Auto) 1.7 Baso % (Auto) 0.4 Neut # (Auto) 10.10 H Lymph # (Auto) 1.40 Riley # (Auto) 0.80 Eos # (Auto) 0.20 Baso # (Auto) 0.10 Abs Immat Gran (auto) 0.00 Imm/Tot Granulo (auto) 0.2 ABG pH ABG pCO2 ABG pO2 ABG HCO3 ABG Total CO2 ABG O2 Saturation ABG Base Excess Sodium 137 Potassium 4.4 Chloride 99 Carbon Dioxide 25 Anion Gap 13 BUN 25 Creatinine 1.0 Estimated Creat Clear 81.58 Estimated GFR 85 Glucose 197 H Lactate 0.6 1.3 3.0 H Calcium 9.6 Total Bilirubin 0.5 AST 40 H ALT 40 Alkaline Phosphatase 90 Total Protein 7.6 Albumin 4.[address] scan - abdomen: Radiologist's impression: TECHNIQUE: CT abdomen and pelvis acquired with 150 cc Omnipaque 370 IV contrast. COMPARISON: CT abdomen and pelvis 05/08/2022. FINDINGS: Lower chest: Unremarkable. Liver: Unremarkable. Gallbladder and bile ducts: Cholecystectomy with stable mild prominence of the intrahepatic biliary ducts. Pancreas: Unremarkable. Spleen: Unremarkable. Adrenal glands: Unremarkable. Kidneys: Bilateral renal cysts. No suspicious renal lesion. No hydronephrosis or hydroureter. No urinary calculi. GI tract/abdominal wall: A pair of ventral abdominal wall hernia defects are noted, both containing bowel. Multiple loops of dilated fluid-filled small bowel measuring up to 4.5 cm are identified with probable transition point noted within the inferior of the 2 ventral abdominal wall hernia defects. Obstructed bowel loops are also noted entering the superior most hernia defect along with unobstructed colonic loops. Vasculature: No abdominal aortic aneurysm. Grossly patent vasculature. Lymph nodes: No suspicious lymphadenopathy. Peritoneum: No ascites or pneumoperitoneum. Pelvis: Normal bladder. Unremarkable prostate and seminal vesicles. Bones: No acute abnormality. IMPRESSION: Small-bowel obstruction with probable transition point noted within the inferior of 2 adjacent ventral abdominal wall hernia defects, although obstructed loops of small bowel also course within the superior ventral abdominal wall hernia defect along with unobstructed colon. Please note that all CT scans at this facility use dose modulation, iterative reconstruction, and/or weight-based dosing when appropriate to reduce radiation dose to as low as reasonably achievable. Dictated by Luisito Rosenthal MD @ 09/26/2024 2:58:07 AM Discharge Plan Discharge Disposition: [facility] Date of Admission: 09/26/24 17:31 Attending Provider on Discharge: Charmaine Mcdonald Primary Care Provider: Luz Jimenez Condition: Stable Discharge Orders: Transfer of Care to Other Hospital (ORDER); Ordered 09/26/24 Ordered By: Charmaine Mcdonald Discharge Comments: On BiPAP Oxygen: Yes Oxygen Delivery Method: Bipap Services not available here: ICU level of care
[2024-09-26] MEDS: KETOROLAC 15 MG/ML inj IVP (23:30)
--- NOTE | 2024-09-27 05:19 | PC.NURSE ---
At beginning of shift (1899), patient on Aerosol mask (7Lt 40%) only achieving 83-88% O2 sats and HR 110's. General Surgeon and MD updated. A&Ox3. Drowsy. Nurse diligent about doing IS w/patient Q1H and patient complied. Aerosol mask increased to 8Lt 50% with minimal results. BiPAP ordered by MD and applied to patient at approximately 2049. Patient only able to tolerate for 5-10 minutes before requesting it to be removed. Nurse educated patient on importance of keeping BiPAP mask on and risks of removing it. Patient still refused stating I will be fine without it, I promise. Nurse again attempted to persuade patient to utilize mask but patient still refused. At 2119 nurse was able to re-apply BiPAP mask. Patient agreeable to keep mask on and did so until transfer at 0006. O2 sats improved to 87-92% with BiPAP. Pain managed with Toradol, IV Tylenol, and Dilaudid (used sparingly d/t poor respiratory status). Akbar and NAVID x2 drains patent. Abdominal incision C/D/I. Patient transferred by EMS at 0006.
== END 2024-09-27 00:06 | disposition short-term general hospital (02) | DRG 227 ==
LOC: ED 10:30 → OR 11:27 → MEDSURG 17:29 → OR 17:57 → MEDSURG 17:57
PROVIDERS: Internal Medicine; Student in an Organized Health Care Education/Training Program; Admitting Provider Surgery; Emergency Provider Family Medicine; PCP Family Medicine; Visit Provider Surgery
PROC: 0WUF0JZ Supplement Abdominal Wall with Synthetic Substitute, Open Approach (ICD-10-PCS; principal; 2024-09-26 11:15)
DX: K43.0 Incisional hernia with obstruction, without gangrene (principal); Z68.43 Body mass index [BMI] 50.0-59.9, adult; J96.02 Acute respiratory failure with hypercapnia; J96.01 Acute respiratory failure with hypoxia; G89.18 Other acute postprocedural pain; E66.01 Morbid (severe) obesity due to excess calories; G47.33 Obstructive sleep apnea (adult) (pediatric); I10 Essential (primary) hypertension; E11.9 Type 2 diabetes mellitus without complications; F32.A Depression, unspecified; E78.5 Hyperlipidemia, unspecified; Z87.891 Personal history of nicotine dependence; Z90.49 Acquired absence of other specified parts of digestive tract
CPT/HCPCS: 00790; 36415; 36600; 64488; 71045; 74177; 76942; 80053; 82803; 82962; 83605; 83690; 85025; 93005; 94660; 94761; 99140; 99284; 99285; C1781; J0131; J0330; J0665; J0666; J0690; J1100; J1171; J1885; J2371; J2405; J2543; J2704; J3010; J3475; J3490; J7030; J7120; Q9967